=== PATIENT | male | born 2005 | race Caucasian/White ===

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

== ENCOUNTER 2024-01-26 14:28 | Emergency (ER) | payer MEDICAID, SELFPAY ==
[2024-01-26 14:30] VITALS: BP 130/73; PULSE 86; RESP 18; TEMP 36.8; O2SAT 98
--- NOTE | 2024-01-26 16:04 | ED.GENADUL_ITS ---
Discharge Plan Disposition Patient Disposition: Home Condition: Stable Discharge Details Clinical Impression: Colitis Primary Care Provider: SALVADOR VAUGHAN ED Provider: Otoniel Franco Home Meds and New Rx's Prescriptions: New prednisone 20 mg tablet 40 mg PO DAILY 7 Days Qty: 14 0RF amoxicillin-pot clavulanate 875-125 mg tablet 1 tab PO BID 7 Days Qty: 14 0RF Continued sertraline [Zoloft] 50 mg Tablet 100 mg PO DAILY Hold Instructions: Pt Stopped/Never Started Patient Comments: patient ran out of medication over a month ago lisdexamfetamine [Vyvanse] 30 mg Capsule 30 mg PO DAILY Hold Instructions: Pt Stopped/Never Started Patient Comments: patient states he has been out of medication for over a month Discharge Instructions Instructions: Prednisone (By mouth), Amoxicillin/Clavulanate Potassium (By mouth), Crohn Disease (ED), Colitis (ED) Additional Instructions: You were seen in the emergency department for your perineal swelling, due to the possibility of fistula and the lack of redness or severe induration I do not think ED drainage is the most prudent choice at this time, you had a bedside ultrasound that showed no pocket of fluid as well. We would like to treat this as a may be an infected sweat gland with a course of Augmentin which also helps with colitis., Your CT scan showed colitis likely secondary to Crohn's and your inflammatory markers are mildly elevated, I did prescribe you a weeks worth of prednisone. I am placing on the list for follow-up for general surgery visit should your swelling to your perineum become worse. I would like you to make an appoint with your primary care provider to get back on Crohn's maintenance medications. Please return to the emergency department for any severe swelling of the scrotum, fever, worsening redness or drainage of pus from the area. Referrals: [facility] [Provider Group] SALVADOR VAUGHAN, [employer] [Primary Care Provider] - Discharge Data Discharge Date/Time-TO BE ENTERED AT DEPARTURE: 01/26/24 20:32 HPI General Date/Time Provider Initiated Documentation: 01/26/24 15:21 . HPI Narrative: 18 year-old male presents to ED today by POV/ambulating with a chief complaint of swollen gland or similar in the perineum, history of untreated Crohn's disease with onset noted over this past week- does endorse pain with movement. Quality described as painful to touch and movement, no redness, no testicular pain, no radiation to fever, discharge, flank pain, black/bloody stools, purulent drainage, testicular swelling, penile pain. Severity is described as 5/10. Palliating factors include nothing attempted. Provoking factors include nothing specific. Events leading up to the incident/Associated Symptoms: Patient has been off his Crohn's medications for some time now. Patient not anticoagulated. Related Data Home Medications Medication Instructions Recorded Confirmed lisdexamfetamine 30 mg capsule 30 mg PO DAILY 03/13/22 01/26/24 (Vyvanse) sertraline 50 mg tablet (Zoloft) 100 mg PO DAILY 03/13/22 01/26/24 amoxicillin 875 mg-potassium 1 tab PO BID colitis 7 days #14 01/26/24 clavulanate 125 mg tablet tabs prednisone 20 mg tablet 40 mg (2 x 20 mg) PO DAILY crohns 01/26/24 colitis 7 days #14 tabs Previous Rx's Medication Instructions Recorded amoxicillin 875 mg-potassium 1 tab PO BID colitis 7 days #14 01/26/24 clavulanate 125 mg tablet tabs prednisone 20 mg tablet 40 mg (2 x 20 mg) PO DAILY crohns 01/26/24 colitis 7 days #14 tabs Allergies Allergy/AdvReac Type Severity Reaction Status Date / Time No Known Allergies Allergy Unverified 01/26/24 14:34 General Stated Complaint: Male Reproductive Problem JAMILA: 3 Review of Systems All systems reviewed & are unremarkable except as noted in HPI and below Exam Narrative Exam Narrative: GENERAL APPEARANCE: Well-nourished, non-toxic, awake and alert, atraumatic, no acute distress. SKIN: Warm, pink, dry, intact, without rashes/lesions/ulcerations. HEAD: Normocephalic, atraumatic, normal hair distribution for gender/age. EYES: Pupils PERRLA, EOMs intact without nystagmus, normal conjunctiva, no e xudates on lids/lashes. ENT: Nares patent, no circumoral cyanosis, no facial swelling NECK: Supple, trachea midline, painless cervical ROM. LUNGS/CHEST: Non-labored respirations, normal A/P diameter, symmetrical expansion, no chest wall deformity HEART (CV/PV): No peripheral edema, no JVD. ABDOMEN: Soft, non-distended, no guarding, no abdominal tenderness, no peritoneal signs. : small swollen nodule in the L perineum, no testicular tenderness/erythema/swelling, no lesions, cremasteric reflexes intact, no discharge at urethral meatus MSK: Normal ROM, no swelling/deformity to bilateral UEs or LEs, moving all extremities without weakness, no cyanosis, spine midline without tenderness, normal curvature. NEURO: Mental Status AAOx4 - alert to person, place, time, events No facial droop, no forehead involvement. Motor: No focal weakness - strength 5/5 in bilateral UEs and LEs, proximal and distal, symmetric. Sensory: sensation intact to light touch globally. Gait normal: patient ambulated without ataxia into ED room. PSYCH: euthymic, cooperative, pleasant, appropriate speech Course Vital Signs Vital signs: Vital Signs Temperature 36.8 C 01/26/24 14:30 Pulse 86 01/26/24 14:30 Respiratory Rate 18 01/26/24 14:30 Blood Pressure 130/73 01/26/24 14:30 Pulse Oximetry 98 01/26/24 14:30 Temperature 36.8 C 01/26/24 14:30 Temperature Source Skin 01/26/24 14:30 Pulse 86 01/26/24 14:30 Respiratory Rate 18 01/26/24 14:30 Respiratory Effort Normal, Non-Labored 01/26/24 14:33 Blood Pressure 130/73 01/26/24 14:30 Blood Pressure Position Sitting 01/26/24 14:30 Pulse Oximetry 98 01/26/24 14:30 Oxygen Delivery Method Room Air 01/26/24 14:30 Oxygen Flow Rate 0 01/26/24 14:30 Pain Level 5 01/26/24 14:30 Medical Decision Making This dictation utilizes [id number] dictation software and may contain unedited grammatical errors. 18 y/o M presents to ED today with a chief complaint of small swollen painful nodule in the perineum, pain with movement 5/10, no redness/swelling, no purulent drainage, no discharge, no dysuria, no flank pain. Patient has uncontrolled Crohn's disease. Patient denies any lesions, denies penile pain, no fevers. Patients' medical history: Crohn's disease. Family and social history: Noncontributory. Pertinent exam findings / vital signs include : small swollen nodule in the L perineum, no testicular tenderness/erythema/swelling, no lesions, cremasteric reflexes intact, no discharge at urethral meatus, no abdominal tenderness. Differential / pathologies of concern include sebasceous cyst, cellulitis, abscess, fistula. Diagnostic studies of: -basic labs - unremarkable, no leukocytosis, kidney function wnl, UA benign. -CT shows no abscess, no fistula Interventions of: -Augmentin & steroids for colitis and possible cellulitis. ED Course/Assessment/Plan: Patient has a suspicious finding for a possible cellulitis and reactive lymphadenopathy, no concern for abscess- informal bedside U/S performed and was not able to locate any pocket of fluid for I&D, nor would I recommend this due to uncontrolled Crohn's and possibility of fistula. Patient has no evidence of testicular or scrotal infection, no findings of fistula on CT- will refer general surgery for possible excision if no response to antibiotics. Rx'd steroid burst for colitis, recommend he talk to PCP about resuming Crohn's medications. Strict return criteria for fever, increasing swelling/redness, testicular swelling/redness/pain. Findings not consistent with Fistula, Christiana's Gangrene, Testicular Torsion, Drainable abscess. Disposition of Colitis. Patient verbalized understanding of the plan and return to ED criteria and engaged in shared decision making. Medical Records Medical records reviewed: Yes I reviewed the patient's medical records. Imaging Data Radiologic Study: Attestation: I personally reviewed and interpreted this imaging study as follows: Imaging: CT Scan Radiologist's impression: Exam: CT Abdomen And Pelvis With Contrast Exam date and time: 01/26/2024 6:37 PM Age: 18 years old Clinical indication: Abdominal pain; Patient HX: Perineum pain, untx'd crohns, ? fistula TECHNIQUE: Imaging protocol: Computed tomography of the abdomen and pelvis with contrast. Radiation optimization: All CT scans at this facility use at least one of these dose optimization techniques: automated exposure control; mA and/or kV adjustment per patient size (includes targeted exams where dose is matched to clinical indication); or iterative reconstruction. Contrast material: [id number]; Contrast volume: 100 ml; Contrast route: INTRAVENOUS (IV); COMPARISON: No relevant prior studies available. FINDINGS: Liver: Normal. No mass. Gallbladder and bile ducts: Normal. No calcified stones. No ductal dilation. Pancreas: Normal. No ductal dilation. Spleen: Normal. No splenomegaly. Adrenal glands: Normal. No mass. Kidneys and ureters: Normal. No hydronephrosis. Stomach and bowel: There is diffuse wall thickening of the colon compatible with acute colitis. No evidence of bowel obstruction. Appendix: No evidence of appendicitis. Intraperitoneal space: Unremarkable. No free air. No significant fluid collection. Vasculature: Unremarkable. No abdominal aortic aneurysm. Lymph nodes: Moderate diffuse mesenteric lymphadenopathy throughout the abdomen. Urinary bladder: Unremarkable as visualized. Reproductive: Unremarkable as visualized. Bones/joints: Unremarkable. No acute fracture. Soft tissues: Unremarkable. IMPRESSION: Moderate findings of diffuse colitis Dictated and Authenticated by: Sam Toledo MD. Ordering:ROSS Frederick MD Lab Data Lab results reviewed: Yes I reviewed the patient's lab results. Labs: Laboratory Tests Range/Units 01/26/24 01/26/24 17:40 17:46 WBC (4.4-10.8) 10^3/uL 6.83 RBC (4.36-5.78) 10^6/uL 4.67 Hgb (13.5-17.5) g/dL 13.0 L Hct (40.0-50.0) % 38.4 L MCV (80-95) fL 82 MCH (27.0-33.0) pg 27.8 MCHC (32.0-36.0) % 33.9 RDW (11.8-14.1) % 12.3 Plt Count (130-400) 10^3/uL 280 MPV (8.0-11.0) fL 8.7 Immature Gran % % 0.3 Neutrophils % % 58.0 Lymphocytes % % 26.8 Monocytes % % 10.4 Eosinophils % % 4.2 Basophils % % 0.3 Nucleated RBC % (0.0-0.3) % 0.0 Absolute Neutrophils (1.2-6.7) 10^3/uL 3.96 Absolute Lymphocytes (1.2-3.4) 10^3/uL 1.83 Absolute Monocytes (0.1-0.8) 10^3/uL 0.71 Absolute Eosinophils (0.0-0.7) 10^3/uL 0.29 Absolute Basophils (0.0-0.2) 10^3/uL 0.02 ESR (0-15) mm/hr 20 H Sodium (136-145) mmol/L 139 Potassium (3.5-5.1) mmol/L 3.5 Chloride (98-107) mmol/L 103 Carbon Dioxide (21.0-32.0) mmol/L 27.4 Anion Gap (3-11) mmol/L 8.6 BUN (7-18) mg/dL 9 Creatinine (0.70-1.30) mg/dL 0.9 Est GFR (CKD-EPI 2020) (mL/min/1.73m2) 125.39 Glucose (74-106) mg/dL 91 Calcium (8.5-10.1) mg/dL 8.4 L Total Bilirubin (0.2-1.0) mg/dL 0.5 AST (15-37) U/L 18 ALT (16-63) U/L 28 Alkaline Phosphatase (46-116) U/L 58 C-Reactive Protein (<or=0.5) mg/dL 2.38 H Total Protein (6.4-8.2) g/dL 7.6 Albumin (3.4-5.0) g/dL 3.7 Urine Color (Yellow) Yellow Urine Clarity (Clear) Clear Urine pH (5-8) 6.0 Ur Specific [place] (1.005-1.025) 1.010 Urine Protein (Neg-Trace) mg/dL Negative Urine Ketones (Negative) mg/dL Negative Urine Blood (Negative) Negative Urine Nitrite (Negative) Negative Urine Bilirubin (Negative) Negative Urine Urobilinogen (Up to 0.2) mg/dL 0.2 Ur Leukocyte Esterase (Negative) Negative Urine Glucose (Negative) mg/dL Negative Quality:SDOH Health Related Social Needs: No Data to Display PFSH All Active Problems (Updated 01/26/24 @ 20:14 by MIGNON Cisneros) Colitis (Acute) Social History Smoking/Tobacco Use Status: Current every day Tobacco Type: cigarettes, e- cigarettes and smokeless tobacco Smoking risk assessment performed?: Yes Alcohol Intake: current Alcohol Intake frequency: a few times a month Alcohol type: beer and hard liquor Drug use: Occasionally Substance use type: marijuana and hallucinogens Do you feel safe at home: Yes Do you feel safe in your relationship?: Yes
[2024-01-26 17:53] LABS: Abs Immature Grans 0.02 10^3/uL (0.0-0.06); Absolute Basophil Count 0.02 10^3/uL (0.0-0.2); Absolute Eosinophil Count 0.29 10^3/uL (0.0-0.7); Absolute Lymphocyte Count 1.83 10^3/uL (1.2-3.4); Absolute Monocyte Count 0.71 10^3/uL (0.1-0.8); Absolute Neutrophil Count 3.96 10^3/uL (1.2-6.7); Basophils % 0.3 %; Eosinophils % 4.2 %; HCT 38.4 % (40.0-50.0); Immature Grans % 0.3 %; Lymphocytes % 26.8 %; MCH 27.8 pg (27.0-33.0); MCHC 33.9 % (32.0-36.0); MCV 82 fL (80-95); MPV 8.7 fL (8.0-11.0); Monocytes % 10.4 %; Platelet Count 280 10^3/uL (130-400); RBC 4.67 10^6/uL (4.36-5.78); RDW 12.3 % (11.8-14.1); RDW-SD 37.1 fL; WBC 6.83 10^3/uL (4.4-10.8)
[2024-01-26 17:57] LABS: ESR 20 mm/hr (0-15)
[2024-01-26 18:25] LABS: ALT 28 U/L (16-63); AST 18 U/L (15-37); Albumin 3.7 g/dL (3.4-5.0); Alkaline Phosphatase 58 U/L (46-116); Anion Gap 8.6 mmol/L (3-11); BUN 9 mg/dL (7-18); Bilirubin, Total 0.5 mg/dL (0.2-1.0); C-Reactive Protein 2.38 mg/dL (<or=0.5); CO2 27.4 mmol/L (21.0-32.0); CREATININE 0.9 mg/dL (0.70-1.30); Calcium 8.4 mg/dL (8.5-10.1); Chloride 103 mmol/L (98-107); Estimated GFR 125.39 (mL/min/1.73m2); Glucose 91 mg/dL (74-106); Potassium 3.5 mmol/L (3.5-5.1); Sodium 139 mmol/L (136-145); Total Protein 7.6 g/dL (6.4-8.2)
[2024-01-26] MEDS: Omnipaque 350 MG/ML 100 ML BTL IJ (18:33)
--- NOTE | 2024-01-26 18:41 | DI.CT_ITS ---
Exam(s) CT ABDOMEN PELVIS W EXAM: CT ABDOMEN PELVIS W CLINICAL HISTORY: perineum pain- untx'd crohns, ?fistula TECHNIQUE: Imaging Protocol: Axial computed tomography images with coronal and sagittal reformatted images were created and reviewed. CONTRAST MATERIAL: Intravenous: Omnipaque 350 Contrast volume:100 mL Oral: No COMPARISON: No exams were available for comparison FINDINGS: ABDOMEN: Lung Bases: Normal where visualized. Liver: Normal density. No measurable mass. Portal, Superior Mesenteric, and Splenic Veins: Unremarkable. Gallbladder and Biliary Tract: No radiodense calculus or dilation. Pancreas: Normal density, no abnormal calcifications or inflammatory process. Spleen: Normal. Adrenals: No masses seen. Kidneys: Normal size, contour and axis. No radiodense stones or obstructive uropathy. No masses seen. Abdominal Aorta: Abdominal portion non-dilated. Bowel: There is thickening of the wall of the rectum with inflammatory stranding present. There is a lso bowel wall thickening seen in the cecum and ascending colon. Mild bowel wall thickening is seen in the region of the splenic flexure. There is no evidence of bowel obstruction. No evidence of mario endicitis. Peritoneal Cavity: There is a trace amount of fluid in the pelvis. No free air.No abscess is seen. Lymph Nodes: Mildly enlarged lymph nodes are seen in the mesentery which may be reactive. Bones: Within normal limits for the patient's age. Soft Tissues: Unremarkable. PELVIS: Bladder: The urinary bladder is incompletely distended limiting evaluation. No gross abnormalities i dentified. Reproductive Organs: Unremarkable as visualized. Lymph Nodes: Within normal limits. Bones: Within normal limits for the patient's age. IMPRESSION: Findings suggestive of proctocolitis. No abscess is seen. The findings at this time are seen to sug gest a fistula. RADIATION DOSE DELIVERED: 743.56mGy.cm Total DLP DATA REPOSITORY: All CT scans at this facility are submitted to the National Radiology Data Registry (NRDR) Dose Index Registry (DIR) with the [employer] (ACR). RADIATION OPTIMIZATION: All CT scans at this facility use at least one of these dose optimization te chniques: automated exposure control; mA and/or kV adjustment per patient size (includes targeted exa ms where dose is matched to clinical indication); or iterative reconstruction.
--- NOTE | 2024-01-26 19:34 | DI.VRAD_ITS ---
PROCEDURE INFORMATION: Exam: CT Abdomen And Pelvis With Contrast Exam date and time: 01/26/2024 6:37 PM Age: 18 years old Clinical indication: Abdominal pain; Patient HX: Perineum pain, untx'd crohns, ? fistula TECHNIQUE: Imaging protocol: Computed tomography of the abdomen and pelvis with contrast. Radiation optimization: All CT scans at this facility use at least one of these dose optimization techniques: automated exposure control; mA and/or kV adjustment per patient size (includes targeted exams where dose is matched to clinical indication); or iterative reconstruction. Contrast material: [id number]; Contrast volume: 100 ml; Contrast route: INTRAVENOUS (IV); COMPARISON: No relevant prior studies available. FINDINGS: Liver: Normal. No mass. Gallbladder and bile ducts: Normal. No calcified stones. No ductal dilation. Pancreas: Normal. No ductal dilation. Spleen: Normal. No splenomegaly. Adrenal glands: Normal. No mass. Kidneys and ureters: Normal. No hydronephrosis. Stomach and bowel: There is diffuse wall thickening of the colon compatible with acute colitis. No evidence of bowel obstruction. Appendix: No evidence of appendicitis. Intraperitoneal space: Unremarkable. No free air. No significant fluid collection. Vasculature: Unremarkable. No abdominal aortic aneurysm. Lymph nodes: Moderate diffuse mesenteric lymphadenopathy throughout the abdomen. Urinary bladder: Unremarkable as visualized. Reproductive: Unremarkable as visualized. Bones/joints: Unremarkable. No acute fracture. Soft tissues: Unremarkable. IMPRESSION: Moderate findings of diffuse colitis Dictated and Authenticated by: Sam Toledo MD. Ordering:ROSS Frederick MD
[2024-01-26 19:47] LABS: Bilirubin Negative (Negative); Blood Negative (Negative); Clarity Clear (Clear); Glucose Negative (Negative); Ketones Negative (Negative); Leukocyte Esterase Negative (Negative); Nitrite Negative (Negative); Urobilinogen 0.2 mg/dL (Up to 0.2)
--- NOTE | 2024-01-28 15:38 | NUR.NOTE ---
[facility] for a perineal cysts in 1-2 weeks.Nursing Note:
== END 2024-01-26 20:32 | disposition home or self-care (01) ==
PROVIDERS: Emergency Provider Physician Assistant; PCP Nurse Practitioner Family
DX: R10.2 Pelvic and perineal pain (principal); K52.9 Noninfective gastroenteritis and colitis, unspecified; F17.210 Nicotine dependence, cigarettes, uncomplicated; F17.290 Nicotine dependence, other tobacco product, uncomplicated
CPT/HCPCS: 80053; 85652; 99285; 74177; 81003; 85025; 86140; 99284; J3490

== ENCOUNTER 2025-02-20 13:30 | Emergency (ER) | payer SELFPAY ==
[2025-02-20 13:33] VITALS: BP 133/82; PULSE 62; RESP 18; TEMP 37.5; O2SAT 98
== END 2025-02-20 14:19 | disposition left against medical advice (07) ==
LOC: ER 14:13
PROVIDERS: PCP Nurse Practitioner Family
DX: Z53.9 Procedure and treatment not carried out, unspecified reason (principal)

== ENCOUNTER 2025-02-21 13:30 | Emergency (ER) | payer OTHER, MEDICAID, SELFPAY ==
[2025-02-21 13:42] VITALS: BP 122/84; PULSE 113; RESP 20; TEMP 36.7; O2SAT 98
--- NOTE | 2025-02-21 14:00 | DI.RAD_ITS ---
Exam(s) XR CHEST 2V PA LATERAL EXAM: XR CHEST 2V PA LATERAL CLINICAL HISTORY: Upper back pain TECHNIQUE: 2D digital imaging was performed. Two views. COMPARISON: No exams were available for comparison FINDINGS: HEART: Normal size. Aorta: Not dilated. PULMONARY VASCULATURE: Normal. MEDIASTINUM: Unremarkable. LUNGS: Clear. PLEURAL SPACE: No pleural effusion or pneumothorax. BONE:Unremarkable for age. SOFT TISSUES: Unremarkable. IMPRESSION: No acute abnormality. DATA REPOSITORY: RADIATION DOSE DELIVERED:
--- NOTE | 2025-02-21 14:15 | RT.EKG_ITS ---
APPROVED REPORT Exam: Resting ECG Reason for Exam: Chest pain Patient Location: E HR:107 bpm ECG Measurements Heart Rate 107 AXIS IA 121 P 84 QRSd 73 QRS 47 QT 316 T 68 QTc 422 Conclusion Sinus tachycardia...rate> 99 Right atrial enlargement...P>0.25mV 2 lds or<-0.24mV aVR/aVL No Occlusion MS
--- NOTE | 2025-02-21 14:16 | ED.GENADUL_ITS ---
Discharge Plan Discharge Details Chief Complaint: GenMedical Clinical Impression: Acute paranoia, Back pain Primary Care Provider: SALVADOR VAUGHAN ED Provider: Keshawn Louise Home Meds and New Rx's Prescriptions: No Action sertraline [Zoloft] 50 mg Tablet 100 mg PO DAILY Patient Comments: patient ran out of medication over a month ago lisdexamfetamine [Vyvanse] 30 mg Capsule 30 mg PO DAILY Patient Comments: patient states he has been out of medication for over a month HPI General Date/Time Provider Initiated Documentation: 02/21/25 13:44 . HPI Narrative: MDM This is an overall well appearing tachycardic but normothermic 19-year-old male with back pain and chest pain for which ECG was ordered along with troponin testing D-dimer in setting of tachycardia. No pain out of proportion to suggest necrotizing soft tissue infection. Concerning the patient's back pain he lacks red flags for back pain so I do not feel he requires an MRI. Specifically he is not an IV drug user and is normothermic so I do not feel that he has an epidura l abscess. He has not lost control of his bladder nor does have saddle anesthesia so I am not suspicious for cauda equina syndrome. He has lost control of his bowels though he does have a history of Crohn's disease and recent diarrhea so this certainly could be the cause of his loss of bowel control. He has not had any recent surgeries to his back to suggest increased risk for spinal epidural hematoma. Furthermore he is not anticoagulated. No dysuria or frequency to suggest UTI. Patient lacks risk factors for ACS and if his troponin is reassuring anticipate outpatient follow-up. He has a soft abdomen that is not tender so I do not feel he requires a CT scan this point in time as he has not had fevers to suggest Crohn's flare. 4:02 PM Patient had a positive D-dimer through for which he will undergo CT angiogram of his chest. His CBC lacks anemia thrombocytopenia and leukocytosis. His tachycardia improved. He had received 1 L of IV fluids. 4:48 PM I signed patient out to Dr. Parag mathis. When we met with the patient he was concerned that the hospital did not know his blood type and that if he were to come into the emergency department following a trauma that he would hypothetically require another blood draw. This was quite disturbing to him. It does seem that there is a component of paranoia as he had reportedly also mentioned to his nurse that he was concerned for fiberoptics in his eye related to a job that he recently left. He was amenable to speaking with a psychiatrist. Dr. Tuttle will place consult. HPI This is a patient with a history of Crohn's disease presenting with back pain and concerns about a potential Crohn's flare-up. The patient arrived on foot seeking to expedite the process of obtaining infliximab treatment for Crohn's disease, which has been managed since childhood. The last treatment was a few years ago, administered every 4 weeks. The patient reports a decline in health following job loss, with back pain being the most debilitating symptom. The patient suspects a flare-up of Crohn's disease, as evidenced by persistent vomiting for 3 days after consuming alcohol. The patient's parents have expressed concern over deteriorating health and urged seeking treatment. The patient recalls a previous incident where a missed GI appointment led to an ER visit and subsequent hospitalization for feeding tube placement and increased infliximab dosage. Currently, the patient is unable to schedule a GI appointment due to lack of transportation. The patient reports constant stomach pain and difficulty eating, although water can be tolerated. The patient also reports bowel incontinence and decreased bladder function, but no numbness or tingling in the legs. No IV drug use. The back pain, described as more severe than any previous Crohn's flare-up, began during employment at a [employer] where respirators were worn. The pain has progressively worsened over the past few months. There is no history of back surgeries or use of blood thinners. The pain is localized to the left upper back and is exacerbated by breathing, leading to some restriction. No pain management strategies have been attempted. Exam General: Well-appearing in no acute distress speaking in complete sentences. Head: Normocephalic, atraumatic. Eye: Extraocular eye movements intact. No conjunctival injection. No scleral icterus. Ear, nose, mouth, throat: Grossly normal inspection. Normal voice, handling secretions normally. Neck: Trachea midline. No midline cervical spinal tenderness. Back: No step-offs no deformities. No midline thoracic nor lumbar spinal tenderness. Mild left-sided paraspinal muscle tenderness. No rash to back. Cardiovascular: Well-perfused distal extremities. Rapid regular rate. Respiratory: Nonlabored respiration. Clear lungs bilaterally Gastrointestinal: Nondistended abdomen. Soft. Nontender. No rebound. No guarding. Musculoskeletal: No edema. Moving all 4 extremities spontaneously. Skin: Normal for age and race, grossly normal temperature and turgor. No acute rash. Neurologic: Alert and appropriate, no apparent acute deficits. Psychiatric: Mood and manner are appropriate. Grooming and personal hygiene are appropriate. Patient denied suicidal and homicidal ideation. He denied visual and auditory hallucinations. No pressured speech. No flight of ideas. Related Data Home Medications ?Medication ?Instructions ?Recorded ?Confirmed lisdexamfetamine 30 mg capsule 30 mg PO DAILY 03/13/22 02/21/25 (Vyvanse) Held on 02/21/25. Instructions: Pt Stopped/Never Started sertraline 50 mg tablet (Zoloft) 100 mg PO DAILY 03/1302/21/25 Held on 02/21/25. Instructions: Pt Stopped/Never Started Allergies Allergy/AdvReac Type Severity Reaction Status Date / Time No Known Allergies Allergy Verified 02/21/25 13:41 General Stated Complaint: GenMedical JAMILA: 4 Course Vital Signs Vital signs: Vital Signs Temperature 36.7 C 02/21/25 13:42 Pulse 113 H 02/21/25 13:42 Respiratory Rate 20 02/21/25 13:42 Blood Pressure 122/84 02/21/25 13:42 Pulse Oximetry 98 02/21/25 13:42 Temperature 36.7 C 02/21/25 13:42 Temperature Source Oral 02/21/25 13:42 Pulse 113 H 02/21/25 13:42 Respiratory Rate 20 02/21/25 13:42 Blood Pressure 122/84 02/21/25 13:42 Blood Pressure Position Sitting 02/21/25 13:42 Pulse Oximetry 98 02/21/25 13:42 Oxygen Delivery Method Room Air 02/21/25 13:42 Oxygen Flow Rate 0 02/21/25 13:42 Pain Level 4 02/21/25 13:42 PFSH All Active Problems (Updated 02/21/25 @ 16:53 by Keshawn Louise MD) Back pain (Acute) Acute paranoia (Acute) Social History Smoking/Tobacco Use Status: Current every day Tobacco Type: cigarettes, e- cigarettes and smokeless tobacco Smoking risk assessment performed?: Yes Alcohol Intake: current Alcohol Intake frequency: a few times a month Alcohol type: beer and hard liquor Drug use: Occasionally Substance use type: marijuana and hallucinogens Do you feel safe at home: Yes Do you feel safe in your relationship?: Yes
[2025-02-21 14:38] VITALS: BP 122/84; PULSE 98; RESP 16; RESP 20; TEMP 36.7; O2SAT 98
[2025-02-21 14:44] LABS: Abs Immature Grans 0.02 10^3/uL (0.0-0.06); Absolute Basophil Count 0.04 10^3/uL (0.0-0.2); Absolute Eosinophil Count 0.24 10^3/uL (0.0-0.7); Absolute Lymphocyte Count 2.37 10^3/uL (1.2-3.4); Absolute Neutrophil Count 5.69 10^3/uL (1.2-6.7); Basophils % 0.4 %; Eosinophils % 2.4 %; HCT 46.2 % (40.0-50.0); HGB 15.2 g/dL (13.5-17.5); Immature Grans % 0.2 %; Lymphocytes % 23.8 %; MCH 27.1 pg (27.0-33.0); MCHC 32.9 % (32.0-36.0); MCV 82 fL (80-95); MPV 8.8 fL (8.0-11.0); Monocytes % 16.1 %; Neutrophils % 57.1 %; Platelet Count 469 10^3/uL (130-400); RBC 5.61 10^6/uL (4.36-5.78); RDW 12.5 % (11.8-14.1); RDW-SD 37.5 fL; WBC 9.96 10^3/uL (4.4-10.8)
[2025-02-21] MEDS: Ketorolac 15 MG/ML VIAL IVP (14:59)
[2025-02-21] MEDS: Normal Saline 1,000 ML 1000 ML IV (15:00)
[2025-02-21 15:02] LABS: Anion Gap 11.5 mmol/L (3-11); BUN 21 mg/dL (7-18); CO2 27.5 mmol/L (21.0-32.0); CREATININE 1.1 mg/dL (0.70-1.30); Calcium 9.3 mg/dL (8.5-10.1); Chloride 97 mmol/L (98-107); Estimated GFR 97.95 (mL/min/1.73m2); Glucose 100 mg/dL (74-106); Potassium 3.8 mmol/L (3.5-5.1); Sodium 136 mmol/L (136-145)
[2025-02-21 15:03] LABS: Troponin I < 4 ng/L (<or=76)
[2025-02-21 15:04] LABS: Diff Comment Agrees w/ Instrument; RBC Morphology Normal
[2025-02-21 15:15] LABS: D-Dimer 2099 ng/mlFEU (<500)
--- NOTE | 2025-02-21 15:30 | DI.CT_ITS ---
Exam(s) CT CHEST PE CTA EXAM: CT CHEST PE CTA CLINICAL HISTORY: + D-dimer. TECHNIQUE: Imaging Protocol: Axial CT angiography was performed with multi- slice acquisition and multi-planar and/or 3D reconstructions. Lung Computer Aided Detection (CAD) was utilized. CONTRAST MATERIAL: Intravenous: Omnipaque 350 contrast volume:65 mL COMPARISON: CT CT ABDOMEN PELVIS W from 01/26/2024 CR XR CHEST 2V PA LATERAL from 02/21/2025 FINDINGS: Tracheobronchial tree: Patent where visualized. No bronchiectasis. Pulmonary parenchyma: No consolidation or dominant measurable mass. No architectural distortion. Pulmonary Arteries: No evidence of filling defect to suggest pulmonary emboli. Mediastinum and Summer: No dominant adenopathy or fluid collection. The esophagus is unremarkable. There is soft tissue in the anterior mediastinum most consistent with residual thymus. Visualized thyroid gland: Unremarkable. Pleura: No effusion or pneumothorax. Heart: The heart is not dilated. No coronary artery calcifications are seen. No pericardial effusion. Aorta: Thoracic aorta non-dilated. No evidence of dissection. Upper abdomen: Unremarkable. Soft tissues: Unremarkable. Bones: Within normal limits for the patient's age. IMPRESSION: 1. No evidence of pulmonary embolism, thoracic aortic dissection or aneurysm. 2. No acute pulmonary process. RADIATION DOSE DELIVERED: 85.81mGy.cm Total DLP DATA REPOSITORY: All CT scans at this facility are submitted to the National Radiology Data Registry (NRDR) Dose Index Registry (DIR) with the [employer] (ACR). RADIATION OPTIMIZATION: All CT scans at this facility use at least one of these dose optimization techniques: automated exposure control; mA and/or kV adjustment per patient size (includes targeted exams where dose is matched to clinical indication); or iterative reconstruction.
[2025-02-21 16:06] LABS: Troponin I < 4 ng/L (<or=76)
[2025-02-21] MEDS: Omnipaque 350 MG/ML 100 ML BTL IJ (16:28)
[2025-02-21] MEDS: Normal Saline - Diluent 50 ML VIAL IJ (16:28)
--- NOTE | 2025-02-21 20:36 | PSYCO_ITS ---
Date of service: 02/21/25 Time of Service: 20:37 Summary Note PSYCHIATRY CONSULT NOTE: INITIAL EVALUATION Date/Time:?02/21/2025 8:36:24 PM Name:Ondina Rodriguez :?2005 Location of the patient:?[facility] ED Consulting Array Clinician:?Jaswinder Black Location of the clinician:?[facility] Length of Consult:?30 mins SUMMARY 19-year-old male, with history of bipolar disorder, schizophrenia, current cannabis use, history of psychiatric hospitalization, with no history of self-crook rming/suicidal behavior/violent behavior, self-referred for psychosis, belen. Based on evaluation patient is manic, as he is paranoid, delusional, he is not sleeping or eating, patient is not compliant with medications. Patient at this time will benefit from inpatient psych.Patient presently meets criteria for inpatient psychiatric hospitalization. Working Diagnoses:? F31.2 Bipolar disorder, current episode manic severe with psychotic features Rule Out Diagnoses:? CPT Codes:?71125 - Psychiatric Diagnostic Evaluation with Medical Services PLAN Disposition:?Psychiatric admission when medically stable, If patient refuses he needs to be placed on involuntary status for admission. ? Observation level ? Psychiatric 1:1 needed??Continue psych 1:1 Work-up:? Pharmacological:? * risperidone 1 mg PO 2x daily for psychosis * haloperidol 5 mg PO/IM Q6h + lorazepam 2 mg PO/IM Q6h + diphenhydramine 50 mg PO/IM Q6h PRN agitation * Is patient psychotic? - Yes; Were antipsychotic medications started? - Yes * Informed consent: Discussed risks and benefits of the above recommended psychiatric medications with patient, who demonstrated understanding and gave express informed consent to take the above medications as documented. Follow up needed while in the hospital??Q24h Other:? * Parts of this note were dictated using voice recognition software and may contain small irregularities and grammatical errors which are unintentional. * If questions arise about the psychiatric care of this patient, please call the [facility]?to request a follow-up consult. ?Please do not contact me individually through the EMR chat as I am not?regularly logged on to?this system. The psychiatrist for the follow-up visit may be a different psychiatrist Discussed plan with onsite steam and power supervisor:?Yes - Spoke with Dr. Tuttle, plan for inpatient psych HISTORY This evaluation was conducted remotely with the assistance of onsite staff via HIPAA-compliant video call. Patient consented to proceed with the telehealth visit. Requested by:? Sources of information:?Patient, medical record, Father History of Present Illness:?19-year-old male, living alone, single, unemployed, with history of bipolar disorder, schizophrenia, current cannabis use, history of psychiatric hospitalization, with no history of self-harming/suicidal behavior/violent behavior, self-referred for psychosis, belen. UDS not ordered, Alcohol not ordered. In the hospital, patient has been in behavioral control with no reported issues. Patient was seen and evaluated. Patient was noted to have pressured speech, circumstantial, patient in the ED stated some bizarre statement where he wanted his blood type checked. Patient is also paranoid about the job that he got let go as form a [employer]. Patient parents state that patient is paranoid, he is paranoid about FBI/KAYLENE and governement after him and spying on him. He makes bizarre claims to his parents. He wanted to join the but due to Chrons disease he does not qualify and he believes that this is a conspiracy. Patient is not compliant with meds, he denies a/v hallucinati ons, he denies si/hi intent or plan, he does not sleep and has not been eating well.. Collateral ContactedContacted David Rodriguez--Father ([phone]). Collateral reports patient poses immediate safety concerns and needs inpatient hospitalization. Collateral reports patient has no access to firearms. See hpi. PSYCHIATRIC REVIEW OF SYSTEMS (symptoms in past two weeks) Pertinent Positives:?irritability/paranoia/see hpi Pertinent Negatives:? PSYCHIATRIC HISTORY Past Psychiatric Diagnoses/Problems:?bipolar disorder, schizophrenia Psychiatric Treatment:?Hospitalizations:?psychiatric hospitalization, X2 per patient ???Other Past treatment:?medication management ???Current treatment:?medication management Drug/Alcohol History ???Current excessive drug/alcohol use:?cannabis ???Past excessive drug/alcohol use:?none ???Drug/alcohol use comment:?Treatment:?none ???Withdrawal symptoms:?none ???UDS results:?UDS not ordered ???BAL results:?not ordered ???Active withdrawal Protocol:? Stressors:?financial problems, job stress Trauma:?none Family Psychiatric History:?none HEALTH HISTORY Medical Problems:? inflamatory bowel disease/Crohn's disease Is patient linked with PCP??yes Psychiatric and other clinically relevant medications:? Allergies/Adverse Medication Reactions:?NKDA Physical Findings:?no clinically significant changes in vital signs DEMOGRAPHICS/SOCIAL HISTORY Gender:?male Living Situation:?living alone Relationship Status:?single Education:?high school/GED Employment:?unemployed Social Support Network:?supportive social network of family or friends Legal History:?none Special Considerations:?none RISK EVALUATION Suicidality/self-injury:?no history of suicidal/self-harming behavior Primary Suicide Screening (PSS-3) 1. In the past two weeks, have you felt down, depressed, or hopeless??NO 2. In the past two weeks, have you had thoughts of killing yourself??NO 3. In your lifetime, have you ever attempted to kill yourself??NO 3a. Within the past 6 months??NO ESS-6 Secondary Screen ( If #2 is yes or #3a is yes within the past 6 months, then complete secondary screen) 1. Positive on PSS-3 questions 2 & 3 ? active suicidal ideation with a past attempt??Screen not applicable 2. Have you been thinking about how you might kill yourself??Screen not applicable 3. Have you had some intention of acting on your thoughts??Screen not applicable 4. Lifetime psychiatric hospitalization??Screen not applicable 5. Has drinking or substance abuse ever been a problem for you??Screen not applicable 6. Current irritability, agitation, or aggression??Screen not applicable PSS-3/ESS-6 Secondary Screen Scoring:?Low Risk-PSS3 screen negative PSS-3/ESS-6 Scoring Interpretation Legend PSS-3 screen incomplete [Blank PSS-3 questions #2 OR #3a] PSS-3 screen unable to assess [Unable to Assess responses on PSS-3 questions #2 AND #3a] Mild [No current attempt AND No suicide plan or intent AND Score (0-2)] Moderate [No current attempt AND Active suicidal ideation with plan or intent (not both) OR Score (3-4)] Severe [Current attempt OR Suicide plan and intent OR Score (5-6)] HI/Violence/Property Destruction:?no history of violent/aggressive behavior Access to Firearms:?none. Collateral reports patient has no access to firearms. Grave disability/Poor self-care:?no Psychosis:?Yes Protective Factors:? High Utilization Criteria:? Signs of Secondary Gain:? MENTAL STATUS EXAM Appearance and Attire:? Normal Psychomotor agitation:? No abnormality Attitude and behavior:? Cooperative Speech:? Pressured Mood:? Irritable Affect:? Irritable Thought Process:? Circumstantial Thought content:? Paranoia Perception:? No hallucinations Intelligence:? Average Abstraction:? Appropriate Language:? No abnormality Orientation:? Oriented x 4 Sensorium:? Normal Knowledge:? Appropriate for education and socioeconomic status Memory:? Intact Insight:? Lack of awareness of problems Judgment:? Impaired in response and decision making, Impaired in responses to current situation and behavior SUMMARY RISK ASSESSMENT Current Suicide Risk Elevated??PSS-3/ESS-6 Scoring: Low Risk-PSS3 screen negative? Current Violence Risk Elevated??No Issues with ability to care for self.?No SAFE-T Jaswinder Black MD Psychiatrist, [facility]
[2025-02-21] MEDS: OLANZapine ODT 5 MG TAB (23:47)
--- NOTE | 2025-02-22 | ED.PROG_ITS ---
Date of service: 02/22/25 Time of Service: 00:02 Medical Decision Making Patient was received in signout from my colleague. Please refer to Dr. Louise's note. In summary, patient has a history of partially diagnosed schizophrenia versus bipolar. He has had a psychiatric admission in the past which he left on his own. He presented today with vague complaints about needing his Remicade for his Crohn's, but during the assessment by Dr. Louise the patient demonstrated perseverations, pressured speech, flight of ideas, and symptoms of notable paranoia, all of which were concerning for manic episode and potential schizophrenia with a psychotic episode. Patient had thorough medical workup performed, labs were stable, hemoglobin stable, CT scan shows no acute process, electrolytes normal, abdomen was nontender nondistended, no signs of an acute Crohn's flare. Decision was made to get telepsych consult, telepsych consult was ordered by myself, and the patient was seen and evaluated by Dr. Lee Ann Madden. Dr. Black also believes that the patient is suffering from a psychotic episode, with belen and paranoia. He recommends admission for mental health management. He feels that the patient wants to be here voluntarily at this time, but psychiatry recommends transition to involuntary admission status if patient refused to stay. He recommends starting on risperidone 1 mg p.o. twice daily, Haldol lorazepam and Benadryl for agitation, and inpatient psychiatric management. We did contact [facility], they did come and evaluate the patient. They state that at this time they do not have a reason to hold the patient, because he is denying any homicidal or suicidal ideations, however they were also not able to complete the assessment because of the patient's pressured speech and agitation. They will come for an evaluation tomorrow. At this time I and the psychiatrist both feel that the patient is not safe for himself or to go home. He did have a gun at his parents home earlier, and I do fear for the safety and wellbeing of his younger siblings and his parents at this current state. I did discuss this with the patient, and the patient agreed to stay voluntarily. Additionally he agreed to take oral Zyprexa 10 mg when he became notably agitated at the situation. No involuntary medications were required. However if the patient did refuse medication or become extremely aggressive he would likely have needed involuntary medication administration. The patient will remain here on voluntary psychiatric hold with plan for admission. The patient does try to leave he will need to be cleared by psychiatry and the physician prior to this, and recommendations at this current stage of his [facility] I discussed this with the mental health team, the parents and the patient and all parties understand. Family agrees. Critical Care Time Critical Care Time Critical Care Time: Yes Total Critical Care Time: 35 Attestation: Upon my evaluation, this patient had a high probability of imminent or life- threatening deterioration, which required my direct attention, intervention, and personal management. I have personally provided 35 minutes of critical care time exclusive of time spent on separately billable procedures. Time includes review of laboratory data, radiology results, discussion with consultants, and monitoring for potential decompensation. Interventions were performed as documented. Discharge Plan Discharge Details Chief Complaint: GenMedical Clinical Impression: Acute paranoia, Back pain, Belen Primary Care Provider: SALVADOR VAUGHAN ED Provider: Otoniel Tuttle Neal Meds and New Rx's Prescriptions: No Action sertraline [Zoloft] 50 mg Tablet 100 mg PO DAILY Patient Comments: patient ran out of medication over a month ago lisdexamfetamine [Vyvanse] 30 mg Capsule 30 mg PO DAILY Patient Comments: patient states he has been out of medication for over a month
--- NOTE | 2025-02-22 07:05 | ED.PROG1_ITS ---
Date of service: 02/22/25 Time of Service: 07:05 Psychiatric Border Handoff Update Brief Story: 19-year-old male history of schizophrenia in the emergency department voluntarily Status: voluntary Able to leave: would need physician/RODGER and crisis evaluation prior to leaving Behavioral Concerns: None Potential Disposition: Pending placement Barriers to Disposition: Awaiting recommendations Medical Concerns: None Mediation Reconciliation performed: Yes Code Status ordered: Yes Diet ordered: Yes Future to do Items: Follow-up [facility]. 12:35 PM [facility] did not feel that the patient met involuntary criteria. I met with the patient. He continued to be paranoid. He asked me if I could read minds. He was calm. He had no flight of ideas but would not engage in conversation. We will reengage with telepsychiatry. 3:45 PM I met with the patient again. He was calm cooperative answering questions appropriately. I spoke with psychiatrist Dr. Jose Daniel Roach who had assessed the patient. He did not feel that the patient had any grounds for an involuntary hold. Patient was not nauseous nor vomiting. He requested some chicken noodle soup. 4:22 PM Patient tolerated chicken noodle soup. He was not having abdominal pain therefore my suspicion for Crohn's flare was low. Patient did not give me permission to speak with his parents. I have updated Ayesha from [facility] who will come to make a safety plan for the patient. Telepsych recommendations (re: meds for agitation, etc): Risperidone recommended and ordered twice daily Discharge Plan Disposition Patient Disposition: Home Discharge Details Clinical Impression: Acute paranoia, Back pain, Windy Primary Care Provider: SALVADOR VAUGHAN ED Provider: Keshawn Louise Home Meds and New Rx's Prescriptions: New risperidone 1 mg tablet 1 mg PO BID Qty: 90 0RF Continued sertraline [Zoloft] 50 mg Tablet 100 mg PO DAILY Patient Comments: patient ran out of medication over a month ago lisdexamfetamine [Vyvanse] 30 mg Capsule 30 mg PO DAILY Patient Comments: patient states he has been out of medication for over a month Discharge Instructions Additional Instructions: You were seen in the emergency department for your paranoid thoughts. The psychiatrist recommended that you begin taking this medication that has been sent to your pharmacy. If you do not feel safe at home or if you are concerned about anything else please return to the emergency department. Please also return if you develop any abdominal pain.
--- NOTE | 2025-02-22 12:38 | PDOC.MHCN_ITS ---
Date of service: 02/22/25 Time of Service: 12:39 PHQ-9 Over the last 2 weeks, how often have you been bothered by any of the following problems? 1. Little interest or pleasure in doing things: nearly every day 2. Feeling down, depressed, or hopeless: several days 3. Trouble falling or staying asleep, or sleeping too much: nearly every day 4. Feeling tired or having little energy: nearly every day 5. Poor appetite or overeating: nearly every day 6. Feeling bad about yourself - or that you are a failure or have let yourself and your family down: not at all 7. Trouble concentrating on things, such as reading the newspaper or watching television: not at all 8. Moving or speaking so slowly that other people could have noticed? - Or the opposite - being so fidgety or restless that you have been moving around a lot more than usual: not at all 9. Thoughts that you would be better off or of hurting yourself in some way: not at all Total score: 13 If you checked off any problems, how difficult have these problems made it for you to do your work, take care of things at home, or get along with other people?: very difficult Source: Developed by Drs. Den Serrato, Johanne Smith, Rupesh Escamilla and colleagues, with an educational kayla from [employer]. Suicide Severity Rate CSSRS Have you wished you were or wished you could go to sleep and not wake up?: No Have you actually had any thoughts of killing yourself?: No CSSRS3 Have you ever done anything, started to do anything or prepared to do anything to end your life?: No Screening Score Total Score: 0 Screening: Negative Mental Health Emergency Note Release [facility] release signed:: Yes Reason for Visit The client is previously known to [facility] and was closed out in March of 2023. He reported he has been hospitalized in the past at [facility] however he is not sure when that was. Per his report and his mother confirmed he had a therapy appointment today. [facility] requested an evaluation of the client on 02.21.25 however, he was too dysregulated at the time of request so is being assessed initially today at [facility]. In the last 2 weeks has the pt presented for ES prior to today?: Unknown Client Information Client is: New Well Housed: Yes Non Suicidal Self Injury Current: No History: No Safety Risk/Harm to Self or Others Current Ideation to Harm Self or Others: No Risk: Does risk to harm exist?: No Risk: Low Risk Duty to warn indicated: No Asssessment/Mental Status Appearance: Disheveled Attitude: Cooperative Behavior: Unremarkable Speech: Normal Affect: Cogruent with mood Mood: Depressed, Anxious, Irritable and Angry Thought process: Goal directed Hallucinations: No evidence Delusions: No evidence Attention: Unremarkable Perception: Not impaired Orientation: Fully orientated Memory: Intact Insight: Fair Judgement: Fair Neurovegetative Symptoms Sleep: Decrease (Although nursing reports he slept well last night. ) Appetitie: Decrease (Due to Crohn's Disease. ) Interests: Decrease Energy: Decrease Libido: Not applicable Substance Use: Do you use nicotine?: No Additional Issues: Assaultive/Threatening Behavior: No Medical Concerns: No Client engaged in active self harm w/weapon: No Threatening to run away: No Child reported abuse/neglect: No Voluntarily presenting for services: No Domestic violence is a concern: No Extreme Psychosis or extreme behavior is present: No Impression The client is a 19-year-old, single, male who lives independently in [facility]. He was recently let go from his job after not showing up0 for work. He is planning to apply for unemployment while he looks for another job. The client uses He/Him pronouns and it is reported he has a history diagnosis (not from [facility]) of Bipolar and ADHD. His parents signed him up for therapy which was to begin today. The client is very sleepy when we arrive but does sit up on his knees in bed wrapped wit his blanket to engage. He makes good eye contact, is cooperative and engaged. He shows some humor occasionally which is appropriate and other times he showed frustration and anger that he is being held. He reported good sleep and his appetite has been disrupted due to being without his Infliximab, and stated he felt delirious without it and not being able to eat either as a result. The client is fully oriented and has fair insight and judgment. Per discussion with the [facility] team the ED provider, Dr. Nicolas had been guided by a tele-psych to hold the client based in the report from the psychiatrist that he is showing signs of paranoia and delusions which suggest a bipolar diagnosis and would benefit from an inpatient stay. Additionally it is reported that he has not been taking his medications and this has also lead to this decline. Th is clinician also spoke to the client's mother, Richmond with his permission and she endorsed paranoia and delusions and denied any SI or HI. Plan/Disposition Recommended Disposition: Therapy. Plan: Although an in patient stay for psychiatric would be beneficial this clinician does not believe she has enough to do an involuntary hold. Client was safety planned home. Reports/communication Outcome discussed with: ED/Personnel
[2025-02-22] MEDS: Nicotine 2 MG GUM CH (14:27)
--- NOTE | 2025-02-22 15:47 | PSYCO_ITS ---
Date of service: 02/22/25 Time of Service: 15:47 Summary Note PSYCHIATRY CONSULT NOTE: FOLLOW-UP EVALUATION Date/Time:?02/22/2025 3:45:54 PM Name:Ondina Rodriguez :?2005 Location of the patient:?[facility] ED Consulting Array Clinician:?Srinivas Roach Location of the clinician:?[place] Patient seen in follow-up. He has been recommended for psychiatric admission because when he first presented and he appeared manic and psychotic. He had disorganized thought processes, pressured speech, was paranoid and delusional about being followed by the government. Patient did apparently get 1 dose of risperidone last night and when seen today he looks a lot better. He is pleasant, cooperative, and does not appear pressured or manic.. He is not overtly delusional. He denies AVH. I spoke with his mother who says that he saw a psychiatrist about a year ago who felt that he was schizophrenic. Patient never agreed to go back again and has not been in care. They have gotten him to agree to go to a therapist to help him deal with the stress of his job. She says he smokes a lot of marijuana, and when he smokes he gets acutely paranoid and delusional, and starts talking about the same things he presented with originally. At this point, patient appears to his stabilized enough where he is not holdable for involuntary hospitalization, and he is not agreeable to voluntary. Unclear how much of his original presentation is secondary to drug induced psychosis, versus an underlying psychiatric issue or a combination. Re commendation is for discharge to outpatient services with a prescription for risperidone as ordered. RISK ASSESSMENT Current Suicide Risk Elevated???negligible Current Violence Risk Elevated???No Issues with ability to care for self???No Does patient require psychiatric hospitalization???No Working Diagnoses:? 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 CPT Codes:?85984 (OP/ED) / 98737 (IP) ? High Complexity Follow-up PLAN Disposition:? Discharge type: Discharge to community resource ? Safety planning: Patient understands and agrees with discharge plan, is aware that should symptoms worsen to return to the ED or call 911 ? Resource information to be provided by site: outpatient mental health treatment, information about patient's diagnosis, treatment recommendations, including dosage and side effects of any prescribed medications ? Observation level ? Psychiatric 1:1 needed??No psych 1:1 needed Work-up:? Pharmacological:? Recommend discharge with risperidone 1mg BID ? Is patient psychotic? - No; ? Informed consent: Discussed risks and benefits of the above recommended psychiatric medications with patient, who demonstrated understanding and gave express informed consent to take the above medications as documented. Follow up needed while in the hospital??none Other:? Parts of this note were dictated using voice recognition software and may contain small irregularities and grammatical errors which are unintentional. ? If questions arise about the psychiatric care of this patient, please call the [facility]?to request a follow-up consult. ?Please do not contact me individually through the EMR chat as I am not?regularly logged on to?this system. The psychiatrist for the follow-up visit may be a different psychiatrist Discussed plan with onsite steam table worker:?Yes - Dr Rubio HISTORY This evaluation was conducted remotely with the assistance of onsite staff via HIPAA-compliant video call. Patient consented to proceed with the telehealth visit. Requested by:?Keshawn Louise MD Medical Record Reviewed/Appreciated:?medical record reviewed Patient status since last psychiatric visit?:?in behavioral control with no reported issues Interval History:? Patient is a 19-year-old male who presented to the emergency department 02/21/2025 with a history of schizophrenia. He had presented paranoid and was seen by psychiatry. At that time, he was noted to have pressured speech, circumstantial, and had made some bizarre statements that he wanted his blood type checked for unknown reasons. He was paranoid about his job as well as about the FBI/KAYLENE and the government being after him and spying on him. He makes bizarre claims to his parents. He was denied going to the because he has Crohn's disease and does not qualify, but he believes that this was a conspiracy against him. Parents were contacted and feel that he is in need of admission. He was recommended for psychiatric admission and the psychiatrist felt he met involuntary criteria if he refused, due to his psychosis. I reviewed the emergency room provider's note from today and apparently [facility] has met with him and did not feel that the patient met involuntary criteria, because he was not suicidal or homicidal, but they also could not complete the assessment because of his pressured speech and agitation.. He continued with the provider to be paranoid, asking him if I could read minds and would not engage in conversation. Spoke with Ben Harley RN. Has been doing much better today. Less agitated and more organized. Less paranoid. Slept all night and woke up a bit agitated and unhappy about being held for psych, he calmed down and has been comp[etely appropriate since then. He did take one dose of risperidone last night but refused it this morning. Met with patient. He said he was only here for his Crohns. Now he feel physically better and feels he doesnt need any further treatment He says he is here for his Crohns he says he was in a high stress job and consuming way more sugar than I should have. he says today he was able to eat and feels significantly better. He says he has had a dx of depression but he hasnt been in any recent treatment. He says he is lined up to see a therapist and the intake was actually yesterday. he says he was getting back into therapy to help him with being stressed and overwhelmed. 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 [id number] AV. Denies SI/HI He does say he has been losing weight and have been delirious meaning malnourished, feels lightheaded, also overindulges in caffeine/energy drink. Collateral Contacted Attempted to contact Richmond Rodriguez--mother ([phone]). She doesn't feel he is a risk to self or others. She does say she thinks he is schizophrenic. She says before he lost his job he was buying alot of weed and you can see a big difference in him. He loses touch with reality. He gets very paranoid, thinks there are drones overhead and the [facility] is watching him. She confirms he has Crohns and she was shocked he wanted to come to the ED. He has been in a major flare. She says he hasnt actually been dx with anything yet. He saw a psychiatrist a year ago and the MD thought he had schizophrenia and when he heard that he never went back. She confirms he was supposed to have a therapist intake today and they have to reschedule. She doesnt know when the last time he used. She thinks very recently.. Current psychiatric and other clinically relevant medications:?risperidone 1mg BID MENTAL STATUS EXAM Appearance and Attire:? Normal, Good eye contact, Well groomed Psychomotor agitation:? No abnormality Attitude and behavior:? Cooperative Speech:? No abnormality Mood:? Euthymic Affect:? Full range of affect Thought Process:? Linear, Logical, Coherent Thought content:? No abnormality, No suicidal ideation, No homicidal ideation, N o paranoia, No delusions Perception:? No hallucinations Intelligence:? Average Abstraction:? Appropriate Language:? No abnormality Orientation:? Oriented x 4 Sensorium:? Normal Knowledge:? Appropriate for education and socioeconomic status Memory:? Intact Insight:? Mild impairment Judgment:? Mild impairment Srinivas Roach, , [facility]
--- NOTE | 2025-03-01 15:05 | MHPN_ITS ---
Date of service: 02/21/25 Time of Service: 21:25 Mental Health Emergency Note Release [facility] release signed:: Yes Reason for Visit In the last 2 weeks has the pt presented for ES prior to today?: No Asssessment/Mental Status Appearance: Disheveled Attitude: Guarded and Hostile Behavior: Agitated Speech: Loud Affect: Expansive Mood: Euthymic Thought process: Unremarkable Hallucinations: No Delusions: yes, Persectory/Paranoid Attention: Unremarkable Perception: Not impaired Orientation: Fully orientated Memory: Intact Insight: Poor Judgement: Poor Impression This clinician received a call from [facility] and spoke with Doctor Tuttle about the client. Doctor Tuttle stated that the client was experiencing paranoia and wanted help and wanted to go to in patient treatment. Upon arriving at [facility] TAWANA Mcneil and this clinician were informed that the client had expressed delusions regarding the government being after him and that something was trying to be leached from his body and that the client was worried this would impact his ability to join the if [place] invades the [place], based on a [facility] psychological consult the hospital stated that they would EE the client if he tried to leave. This clinician and [facility] Mariam Mcneil attempted to engage the client in a crisis assessment, the client stated he was fine and that he was not thinking of harming himself or others and that the hospital had thrown him into the zone b room for no reason. The client stated that he wanted to leave. The client denied any of the delusions that this clinician and Mariam Mcneil had been informed of by Doctor Tuttle. The client began to escalate pacing and stating that he is fine and that in patient treatment does not help him. At this point this clinician and TAWANA Mcneil left the client so the client would regulate hopefully. This clinician and [facility] Mariam Mcneil consulted with the client's parents. The client's parents stated that the client has been experiencing increased paranoia over the last two weeks and had a DUI about a month ago. The client's parents report that the client has been in patient three times before and that one of those times they believe was involuntary and occured as the client was self harming with cutting and burning himself after a break up with his girlfriend. The client's parents state that the client has a pistol which they now have put in their gun safe. The client's parents state they know of no statements the client has made in the last two weeks about hurting himself or others or any behaviors in the last two weeks that put him in danger. Based on the provided information TAWANA Mcneil [facility] reported to the provider doctor Tuttle that she did not have enough to write an emergency examination on the client. The client became more escalated and held his door closed in his room in zone b, refusing to engage with these clinicians. Doctor Tuttle informed the client that if the client attempted to leave then doctor Tuttle would EE the client. The client then opened the door and accepted the offered antipsychotic medication. A full assessment and intake still needs to be done. Per Doctor Tuttle he is at this time considering the client to be voluntary. 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 Plan/Disposition Recommended Disposition: Other. Plan: The client is waiting in [facility] zone b. Reports/communication Outcome discussed with: ED/Personnel
== END 2025-02-22 17:07 | disposition home or self-care (01) ==
PROVIDERS: Emergency Provider Emergency Medicine; PCP Nurse Practitioner Family
DX: F30.9 Manic episode, unspecified (principal); F22 Delusional disorders; M54.9 Dorsalgia, unspecified
CPT/HCPCS: 99291; 99285; 96374; 36415; 00123; 71275; 80048; 93005; 96127; 96361; G0378; 71046; 84484; 85025; 85379; 93010; J1885; J2060; J3490

== ENCOUNTER 2025-03-08 10:56 | Emergency (ER) | payer MEDICAID, SELFPAY ==
[2025-03-08 11:10] VITALS: BP 136/83; PULSE 90; RESP 18; TEMP 36.8; O2SAT 98
--- NOTE | 2025-03-08 11:55 | W.ED.GENAD ---
Discharge Plan Discharge Details Chief Complaint: PsychEval Primary Care Provider: SALVADOR VAUGHAN ED Provider: Nathaly Marrufo Home Meds and New Rx's Prescriptions: No Action sertraline [Zoloft] 50 mg Tablet 100 mg PO DAILY Patient Comments: patient ran out of medication over a month ago lisdexamfetamine [Vyvanse] 30 mg Capsule 30 mg PO DAILY Patient Comments: patient states he has been out of medication for over a month risperidone 1 mg tablet 1 mg PO BID Qty: 90 0RF Discharge Instructions Additional Instructions: I called and spoke to the palliative care nurse at [facility]. Your provider is aware that your medications need to be refilled, he is requesting that you come in for an appointment in order to do this. We were able to arrange for you to have a follow-up at 9:30 AM on April 04. I recommend that you keep this appointment. If you are unable to make it please call and reschedule at least 24 hours prior. HPI General Date/Time Provider Initiated Documentation: 03/08/25 11:03. HPI Narrative: Giuseppe Lewis) is a 19-year-old male who presents to the emergency department today companied by his father for evaluation after counselor told him to present to ED for concern of HI. He reports that this is worsening with a counselor, told her that he has a knock off/ kill list; he claims that this refers to a to do list of tasks rather than people to be eliminated. He denies SI, HI, hallucinations self-harm behaviors, recent illness, drug use other than marijuana, alcohol use. He is concerned that he needs to have his Remicade and Vyvanse refilled by his PCP, but does not have an appointment for another month, is wondering if I might be able to reach out and see about getting his meds refilled. Physical exam reassuring. Giuseppe is alert and oriented, in no acute distress, easily conversational. Easy work of breathing, able to speak in full sentences. Moving all extremities equally History and presentation overall raises low suspicion for homicidal ideation, as patient is easily able to explain the use of the term kill list. Patient would benefit from crisis eval. Patient medically clear with baseline labs, no acute abnormalities noted. UDS significant for positive THC, consistent with known marijuana use. I did place a call to [facility], spoke with Naomi, palliative care nurse. Patient does have a history of frequent no-shows to appointments, and PCP Salvador Vaughan is not comfortable with refilling prescriptions without in person appointment. We were able to arrange for follow-up appointment at 9:30 AM on 04/04/2025. This information was included on discharge paperwork. I spoke with Vee, [facility] crisis counselor, who evaluated patient. She agrees that patient has not expressed any homicidal ideation and feels he would be appropriate for safety plan, however he is willing to have telepsychiatry meet with him to further assess. Telepsychiatry order Handoff report given to Tiffanie Cobos PATIENT'S LIBRARIAN, evening RODGER. Telepsychiatrist currently evaluating patient. Related Data Home Medications ?Medication ?Instructions ?Recorded ?Confirmed lisdexamfetamine 30 mg capsule 30 mg PO DAILY 03/13/22 03/08/25 (Vyvanse) sertraline 50 mg tablet (Zoloft) 100 mg PO DAILY 03/13/22 03/08/25 risperidone 1 mg tablet 1 mg PO BID #90 tabs 02/22/25 03/08/25 Previous Rx's ?Medication ?Instructions ?Recorded risperidone 1 mg tablet 1 mg PO BID #90 tabs 02/22/25 Allergies Allergy/AdvReac Type Severity Reaction Status Date / Time No Known Allergies Allergy Verified 03/08/25 11:25 General Stated Complaint: PsychEval JAMILA: 2 Exam Const General: cooperative, healthy appearing, comfortable, no acute distress, well developed and well groomed Nutritional Appearance: average body habitus Orientation: alert and oriented x3 Resp Effort & Inspection: normal respiratory effort and able to speak in complete sentences Skin General skin exam: no rashes or lesions noted Trauma: no lacerations or abrasions Neuro General: patient alert, patient oriented x3, gait normal, tone normal and moves all extremities Speech: speech normal Extrem General: normal to inspection Psych Appearance: grossly normal Mental Status: mental status grossly normal Affect: normal affect Attitude: cooperative and avoids eye contact Thought Process: normal Thought Content: no homicidality and suicidality Course Vital Signs Vital signs: Vital Signs Temperature 36.8 C 03/08/25 11:10 Pulse 90 03/08/25 11:10 Respiratory Rate 18 03/08/25 11:10 Blood Pressure 136/83 03/08/25 11:10 Pulse Oximetry 98 03/08/25 11:10 Temperature 36.8 C 03/08/25 11:10 Temperature Source Tympanic 03/08/25 11:10 Pulse 90 03/08/25 11:10 Respiratory Rate 18 03/08/25 11:10 Blood Pressure 136/83 03/08/25 11:10 Blood Pressure Position Sitting 03/08/25 11:10 Pulse Oximetry 98 03/08/25 11:10 Oxygen Delivery Method Room Air 03/08/25 11:10 Oxygen Flow Rate 0 03/08/25 11:10 Pain Level 0 03/08/25 11:10 Medical Decision Making Quality:SDOH Health Related Social Needs: Health related social needs risk of homeless food insecurity house/econ circumstance lonely/isolated Health related social needs details 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 Pt has support through family. PFSH All Active Problems (Updated 02/22/25 @ 00:09 by Otoniel Tuttle DO) Windy (Acute) Back pain (Acute) Acute paranoia (Acute) Social History Smoking/Tobacco Use Status: Former Tobacco Use Quit Date: 01/30/25 Smoking risk assessment performed?: Yes Alcohol Intake: former Drug use: Daily Substance use type: marijuana and hallucinogens Housing: house Do you feel safe at home: Yes Do you feel safe in your relationship?: Yes
[2025-03-08 11:59] LABS: Cannabinoids THC Positive (Negative); METHADONE URINE SCREEN Negative (Negative)
[2025-03-08 12:10] LABS: Abs Immature Grans 0.01 10^3/uL (0.0-0.06); HCT 38.9 % (40.0-50.0); HGB 12.8 g/dL (13.5-17.5); Immature Grans % 0.2 %; MCH 27.1 pg (27.0-33.0); MCHC 32.9 % (32.0-36.0); MCV 82 fL (80-95); MPV 8.6 fL (8.0-11.0); Platelet Count 368 10^3/uL (130-400); RBC 4.72 10^6/uL (4.36-5.78); RDW 12.7 % (11.8-14.1); RDW-SD 38.1 fL; WBC 6.60 10^3/uL (4.4-10.8)
[2025-03-08 12:24] LABS: Glucose Negative (Negative)
[2025-03-08 12:57] LABS: ALT 33 U/L (16-63); AST 16 U/L (15-37); Albumin 3.5 g/dL (3.4-5.0); Alkaline Phosphatase 67 U/L (46-116); Anion Gap 10.9 mmol/L (3-11); BUN 14 mg/dL (7-18); Bilirubin, Total 0.2 mg/dL (0.2-1.0); CO2 26.1 mmol/L (21.0-32.0); Calcium 8.8 mg/dL (8.5-10.1); Chloride 102 mmol/L (98-107); Estimated GFR 134.44 (mL/min/1.73m2); Glucose 104 mg/dL (74-106); Potassium 3.9 mmol/L (3.5-5.1); Sodium 139 mmol/L (136-145); TSH (W/Ref FT4) 2.75 uIU/mL (0.36-3.74); Total Protein 8.0 g/dL (6.4-8.2)
[2025-03-08 13:02] LABS: Acetaminophen < 2 ug/mL (10-30); Salicylate < 2.8 mg/dL (<2.8)
--- NOTE | 2025-03-08 16:23 | PSYCO_ITS ---
Date of service: 03/08/25 Time of Service: 16:24 Summary Note PSYCHIATRY CONSULT NOTE: INITIAL EVALUATION Date/Time:?03/08/2025 4:18:23 PM Name:Ondina Rodriguez :?2005 Location of the patient:?[facility] ED Consulting Array Clinician:?Srinivas Roach Location of the clinician:?[facility] Length of Consult:?45 minutes SUMMARY 19-year-old male, with history of psychotic disorder, current cannabis use, history of psychiatric hospitalization, with no history of self-harming/suicidal behavior/violent behavior, referred to hospital by provider for homicidal ideation. Patient was referred to the emergency department from his therapist office with concern about possible homicidal ideation. He apparently was meeting with a therapist for the first time and during the assessment he somehow ended up talking about his knock off list that he calls a hit list. This concerned the therapist enough to refer him to the emergency department. He is irritated and annoyed with being here, and says that he uses this terminology for his list of things he has to do at home, essentially a list of chores and tasks he has to complete. His father says that his family tends to engage in sarcasm and that Eddie sometimes carries that too far. He was not in the room for the conversation but has had no safety concerns about his son and no concerns that he had any thoughts about hurting anyone or himself. He is concerned about his sons paranoia and some of his thinking, and is committed to making sure he gets into treatment and sees a psychiatrist. Patient also has been smoking cannabis and family has concerns that it makes him delusional and paranoid. He continues to be positive on UDS. Patient denies any thoughts of hurting himself or anyone else. He denies any AVH. At this point, I do not see any need for psychiatric admission and he is recommended for discharge to continue with outpatient services. Patient denies SI/HI, does not display signs or symptoms of serious psychosis, contracts reliably for safety, is future oriented, is able to provide for basic needs/safety, has reliable collateral support who confirms safety. Patient does not appear to be at acute risk to self or others due to psychiatric illness or to require inpatient psychiatric hospitalization. Working Diagnoses:? F12.259 Cannabis dependence with psychotic disorder, unspecified; F28 Other psychotic disorder not due to a substance or known physiological condition Rule Out Diagnoses:? CPT Codes:?27060 - Psychiatric Diagnostic Evaluation with Medical Services PLAN Disposition:? Discharge type: Discharge to community resource ? Safety planning: Patient has identified listed collateral contact as support person for post-discharge care; Patient understands and agrees with discharge plan, is aware that should symptoms worsen to return to the ED or call 911 ? Resource information to be provided by site: outpatient mental health treatment, information about patient's diagnosis, treatment recommendations, including dosage and side effects of any prescribed medications ? Observation level ? Psychiatric 1:1 needed??No psych 1:1 needed Work-up:? Pharmacological:? No psychiatric medication recommendations at this time ? Is patient psychotic? - No; Follow up needed while in the hospital??none Other:? Parts of this note were dictated using voice recognition software and may contain small irregularities and grammatical errors which are unintentional. ? If questions arise about the psychiatric care of this patient, please call the [facility]?to request a follow-up consult. ?Please do not contact me individually through the EMR chat as I am not?regularly logged on to?this system. The psychiatrist for the follow-up visit may be a different psychiatrist Discussed plan with onsite team automobile assembler:?Yes ? Ines Zamora HIGHBALLER HISTORY This evaluation was conducted remotely with the assistance of onsite staff via HIPAA-compliant video call. Patient consented to proceed with the telehealth visit. Requested by:?Keshawn Louise MD Sources of information:?Patient, medical record History of Present Illness:? 19-year-old male, living with family, single, unemployed, with history of psychotic disorder, current cannabis use, history of psychiatric hospitalization, with no history of self-harming/suicidal behavior/violent behavior, referred to hospital by provider for homicidal ideation. UDS positive for cannabis, Alcohol undetectable. In the hospital, patient has been in behavioral control with no reported issues. Patient is a 19-year-old male who presented to the emergency department by his father for evaluation after a counselor told him to come in for possible homicidal ideation. He apparently told her that he has a knock off list and he says that this actually refers to the list of tasks he needs to do rather than people to be eliminated. He denies SI/HI/AVH. He otherwise has no other complaints. Appears that he is on Vyvanse for ADHD. He was seen in the emergency department in the past, by myself, for paranoia. There has been a question of a psychotic disorder in the past but no clear diagnosis. He has been concerned about whether some of this has been secondary to substance use.. On psychiatric evaluation, patient is reliable, disorganized, cooperative, pleasant, able to give clear history. Patient says he feels like he isnt getting anywhere and wants his father to talk. Father says he got a therapist and he met with her for the first time this morning and he said something concerning enough to give him an ultimatum He says he made a comment about having a knock out list and his hit list. He says the terminology got her concerned because she didn't know him. he says the main issue ss on the list are chores. Father says he didnt explain that they didnt try to come to an understanding or anything like that. he thinks she wanted the ED to determine SI/HI. He says family has sarcasm and Giuseppe crosses lines with sarcasm frequently and doesnt have safety concerns. Father is concerned about his paranoia, and doesnt have a clear grasp on things which are real to other people. He is a gentle caring kid but wants him to get treatment because he doesnt want this to get worse. 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 Stressed by finances.. Collateral Contacted Contacted --. Collateral reports patient poses no immediate safety concerns and is safe to return home, understands and agrees with discharge plan, and is aware that should symptoms worsen to return to the ED or call 911. Collateral reports patient has no access to firearms. PSYCHIATRIC REVIEW OF SYSTEMS (symptoms in past two weeks) Pertinent Positives:?irritability Pertinent Negatives:?no depressed mood/no anhedonia/no hopelessness/no insomnia/no aggressive behavior/no agitation/no command hallucinations/no anxiety/no panic attacks/no impulsivity PSYCHIATRIC HISTORY Past Psychiatric Diagnoses/Problems:?psychotic disorder Psychiatric Treatment:?Hospitalizations:?psychiatric hospitalization ???Other Past treatment:?therapy, medication management ???Current treatment:?therapy Drug/Alcohol History ???Current excessive drug/alcohol use:?cannabis ???Past excessive drug/alcohol use:?none ???Drug/alcohol use comment:?Treatment:?none ???Withdrawal symptoms:?none ???UDS results:?UDS positive for cannabis ???BAL results:?undetectable ???Active withdrawal Protocol:? Stressors:?financial problems, exacerbation of mental illness, chronic substance abuse, job stress Trauma:?none Family Psychiatric History:?none HEALTH HISTORY Medical Problems:?Crohn's Dz Is patient linked with PCP??yes Psychiatric and other clinically relevant medications:?none Allergies/Adverse Medication Reactions:?NKDA Physical Findings:?no clinically significant changes in vital signs, no clinically significant abnormal lab values DEMOGRAPHICS/SOCIAL HISTORY Gender:?male Living Situation:?living with family Relationship Status:?single Education:?high school/GED Employment:?unemployed Social Support Network:?supportive social network of family or friends Legal History:?none Special Considerations:?none RISK EVALUATION Suicidality/self-injury:?no history of suicidal/self-harming behavior Primary Suicide Screening (PSS-3) 1. In the past two weeks, have you felt down, depressed, or hopeless??NO 2. In the past two weeks, have you had thoughts of killing yourself??NO 3. In your lifetime, have you ever attempted to kill yourself??NO 3a. Within the past 6 months??NO ESS-6 Secondary Screen ( If #2 is yes or #3a is yes within the past 6 months, then complete secondary screen) 1. Positive on PSS-3 questions 2 & 3 ? active suicidal ideation with a past attempt??Screen not applicable 2. Have you been thinking about how you might kill yourself??Screen not applicable 3. Have you had some intention of acting on your thoughts??Screen not applicable 4. Lifetime psychiatric hospitalization??Screen not applicable 5. Has drinking or substance abuse ever been a problem for you??Screen not applicable 6. Current irritability, agitation, or aggression??Screen not applicable PSS-3/ESS-6 Secondary Screen Scoring:?Low Risk-PSS3 screen negative PSS-3/ESS-6 Scoring Interpretation Legend PSS-3 screen incomplete [Blank PSS-3 questions #2 OR #3a] PSS-3 screen unable to assess [Unable to Assess responses on PSS-3 questions #2 AND #3a] Mild [No current attempt AND No suicide plan or intent AND Score (0-2)] Moderate [No current attempt AND Active suicidal ideation with plan or intent (not both) OR Score (3-4)] Severe [Current attempt OR Suicide plan and intent OR Score (5-6)] HI/Violence/Property Destruction:?no history of violent/aggressive behavior Access to Firearms:?none. Collateral reports patient has no access to firearms. Grave disability/Poor self-care:?no Psychosis:?No Protective Factors:?identifies reasons for living; future orientation High Utilization Criteria:?none Signs of Secondary Gain:?none MENTAL STATUS EXAM Appearance and Attire:? Normal, Good eye contact, Well groomed Psychomotor agitation:? No abnormality Attitude and behavior:? Guarded Speech:? No abnormality Mood:? Euthymic Affect:? Irritable Thought Process:? Linear, Logical, Coherent Thought content:? No suicidal ideation, No homicidal ideation, No paranoia, No delusions Perception:? No hallucinations Intelligence:? Average Abstraction:? Appropriate Language:? No abnormality Orientation:? Oriented x 4 Sensorium:? Normal Knowledge:? Appropriate for education and socioeconomic status Memory:? Intact Insight:? Mild impairment Judgment:? Mild impairment SUMMARY RISK ASSESSMENT Current Suicide Risk Elevated??PSS-3/ESS-6 Scoring: Low Risk-PSS3 screen negative? Current Violence Risk Elevated??No Issues with ability to care for self.?No Srinivas Roach, , [facility]
--- NOTE | 2025-03-08 18:22 | PDOC.MHCN_ITS ---
Date of service: 03/08/25 Time of Service: 13:30 PHQ-9 Over the last 2 weeks, how often have you been bothered by any of the following problems? 1. Little interest or pleasure in doing things: several days 2. Feeling down, depressed, or hopeless: nearly every day 3. Trouble falling or staying asleep, or sleeping too much: nearly every day 4. Feeling tired or having little energy: not at all 5. Poor appetite or overeating: several days 6. Feeling bad about yourself - or that you are a failure or have let yourself and your family down: more than half the days 7. Trouble concentrating on things, such as reading the newspaper or watching television: more than half the days 8. Moving or speaking so slowly that other people could have noticed? - Or the opposite - being so fidgety or restless that you have been moving around a lot more than usual: several days 9. Thoughts that you would be better off or of hurting yourself in some way: not at all Total score: 13 Source: Developed by Drs. Den Serrato, Johanne Smith, Rupesh Escamilla and colleagues, with an educational kayla from [employer]. Suicide Severity Rate CSSRS Have you wished you were or wished you could go to sleep and not wake up?: No Have you actually had any thoughts of killing yourself?: No CSSRS3 Have you ever done anything, started to do anything or prepared to do anything to end your life?: No Screening Score Total Score: 0 Screening: Negative Mental Health Emergency Note Release [facility] release signed:: Yes Reason for Visit Last visit began 02/21/25 resulting in safety plan after assessment In the last 2 weeks has the pt presented for ES prior to today?: No Client Information Client is: Adult Outpatient Well Housed: Yes Current Treatment Team if applicable First care retail team leader: Name: Dr. Shannen Sims Role: PCP Contact Info: [phone] Non Suicidal Self Injury Current: No History: No Safety Risk/Harm to Self or Others Current Ideation to Harm Self or Others: No Risk: Does risk to harm exist?: No Risk: Low Risk Duty to warn indicated: No Asssessment/Mental Status Appearance: Well groomed Attitude: Cooperative, Guarded and Friendly Behavior: Unremarkable Speech: Normal Affect: Normal and Cogruent with mood Mood: Euthymic and Anxious Thought process: Unremarkable, Poverty of content and Other (Does not offer information, must be asked to expand on answers) Hallucinations: No Delusions: No evidence Attention: Unremarkable Perception: Not impaired Orientation: Fully orientated Memory: Intact Insight: Good Judgement: Good Neurovegetative Symptoms Sleep: Decrease Appetitie: Disordered Interests: No change Energy: Increase Libido: No change Substance Use: Do you use nicotine?: No Have you used substances in the last 7 days?: yes, THC Impression The client is a 19-year-old male who lives independently in [facility]. He presented as clean and well-groomed, appearing slightly angry regarding his current situation and expressing fears of being involuntarily sent for evaluation. Client reported experiencing financial and housing insecurity, citing insufficient income from his new job in comparison to his unemployment insurance. His symptoms align most closely with major depressive disorder and manic episodes, exacerbated by a recent loss of a relationship. Due to financial constraints, the client could not afford his medications, leading to a loss of therapeutic levels required for managing his ongoing medical and mental health conditions. He recently met a new therapist, during which he discussed a Kill List. This Clinician, who was not present during the session, sought clarification during the crisis assessment at the emergency department. The client clarified that the Kill List refers to his Knock It Out list, a to-do list aimed at getting his life back on track. He indicated that the clinician did not allow him the opportunity to elaborate on this statement and called his father into the session. The meeting culminated in the therapist instructing the client to make a choice between going to the emergency department with his father or having the therapist call the police for transport. Despite these concerns, the client denies any suicidal or homicidal thoughts, actions, plans, or intent and does not engage in non-suicidal self-injury. He has established connections within the community and comes from a supportive family. However, he expressed difficulties in trusting therapists, citing previous disappointments, particularly concerning today's experience. Prior to discharge, the client participated in safety planning. Resources Reosurces reviewed and given:: 988, NK and Other Plan/Disposition Recommended Disposition: PCP/Office visit, [facility] [place] Services [facility]: Therapy, Therapy, Med management and Community resources. Plan: Client engaged in Safety Planning, will follow-up with PCP to resume treatment and medication management. Client declined offer for voluntary inpatient mental health treatment and does not meet criteria for involuntary stay. Reports/communication Outcome discussed with: ED/Personnel
--- NOTE | 2025-03-08 18:37 | PDOC.MHCN ---
Date of service: 03/08/25 Time of Service: 13:30 Mental Health Emergency Note Release [facility] release signed:: Yes Reason for Visit In the last 2 weeks has the pt presented for ES prior to today?: No Plan/Disposition Recommended Disposition: PCP/Office visit, [facility] Services [facility] Services: Therapy and Other, Therapy and Med management. Reports/communication Outcome discussed with: ED/Personnel
== END 2025-03-08 17:15 | disposition home or self-care (01) ==
PROVIDERS: Nurse Practitioner Family; Emergency Provider Registered Nurse Emergency; PCP Nurse Practitioner Family
DX: F12.259 Cannabis dependence with psychotic disorder, unspecified (principal); Z87.891 Personal history of nicotine dependence
CPT/HCPCS: 00123; 80053; 80307; 96127; 99284; 80320; 80329; 81003; 84443; 85025

== ENCOUNTER 2025-04-21 15:38 | Emergency (ER) | payer MEDICAID, SELFPAY ==
[2025-04-21] VITALS (40 sets, daily range): BP systolic 122–141; BP diastolic 78–91; PULSE 71–108; RESP 15–18; TEMP 36.6–36.8; O2SAT 95–99
--- NOTE | 2025-04-21 16:15 | DI.CT_ITS ---
Exam(s) CT ABDOMEN PELVIS W EXAM: CT ABDOMEN PELVIS W CLINICAL HISTORY: Ulcerative Colitis, Crohns Flare. TECHNIQUE: Imaging Protocol: Axial computed tomography images with coronal and sagittal reformatted images were created and reviewed CONTRAST MATERIAL: Intravenous: Omnipaque-350 75cc Oral: Yes. Oral contrast was also administered for bowel opacification. COMPARISON: CT CT ABDOMEN PELVIS W from 01/26/2024 FINDINGS: VISUALIZED LUNG BASES: No nodules nor pleural effusions evident. ABDOMEN: LIVER: No focal lesions. No dilated intrahepatic ducts. BILIARY: No acute gallbladder pathology. CBD is not dilated. PANCREAS: Unremarkable. No masses. Pancreatic duct is not dilated. SPLEEN: Splenomegaly again noted. Craniocaudal measurement of the spleen is 15 cm. There are no splenic masses. Splenic and portal veins are patent. ADRENALS: There are no significant adrenal masses. KIDNEYS:No cysts evident. No solid renal masses. No calculi nor hydronephrosis.. ABDOMINAL AORTA: Abdominal aorta is not enlarged. LYMPH NODES:There are multiple small mesenteric and periaortic lymph nodes. These are probably related to the colon pathology. ABDOMINAL WALL: No evidence of significant anterior abdominal wall nor inguinal hernia. GI: There is significant circumferential thickening of the wall of the rectum and sigmoid as well as some moderate thickening of the wall of the descending- left colon at and distal to the splenic flexure.. The administered oral contrast has not yet reached the colon but there does not appear to be small bowel obstruction. Small bowel loop diameters are upper normal. There is no oral contrast yet within the terminal ileum. Appendix is not identified. There is no evidence of obvious appendicitis. No obvious findings in stomach. Somewhat patulous duodenum. PELVIS: LYMPH NODES: Slightly prominent lymph nodes around the aortic bifurcation. There is no prominent intrapelvic nor inguinal adenopathy. REPRODUCTIVE: Prostate size is normal. Seminal vesicles unremarkable. URINARY BLADDER: No calculi nor obvious masses evident OSSEOUS: No fractures and no significant osseous lesions. IMPRESSION: 1. Multifocal trans mural colitis pattern most prominent in the rectum and sigmoid and also evident in the descending-left colon. Consistent with inflammatory bowel disease either chronic ulcerative colitis or Crohn's colitis. 2. There is no evidence of obvious bowel obstruction, free air, nor abscess. Preliminary virtual Radiology report reviewed RADIATION DOSE DELIVERED: 295.04mGy.cm Total DLP DATA REPOSITORY: All CT scans at this facility are submitted to the National Radiology Data Registry (NRDR) Dose Index Registry (DIR) with the [employer] (ACR). RADIATION OPTIMIZATION: All CT scans at this facility use at least one of these dose optimization techniques: automated exposure control; mA and/or kV adjustment per patient size (includes targeted exams where dose is matched to clinical indication); or iterative reconstruction.
[2025-04-21 16:25] LABS: Abs Immature Grans 0.08 10^3/uL (0.0-0.06); HCT 40.5 % (40.0-50.0); HGB 13.6 g/dL (13.5-17.5); Immature Grans % 0.6 %; MCH 26.6 pg (27.0-33.0); MCHC 33.6 % (32.0-36.0); MCV 79 fL (80-95); MPV 8.1 fL (8.0-11.0); Platelet Count 463 10^3/uL (130-400); RBC 5.12 10^6/uL (4.36-5.78); RDW 12.9 % (11.8-14.1); RDW-SD 36.9 fL; WBC 12.93 10^3/uL (4.4-10.8)
[2025-04-21 16:26] LABS: ESR 52 mm/hr (0-15)
--- NOTE | 2025-04-21 16:30 | ED.GENADUL_ITS ---
Discharge Plan Disposition Patient Disposition: Admit to [facility] Condition: Stable Discharge Details Clinical Impression: Ulcerative colitis with rectal bleeding Primary Care Provider: SALVADOR VAUGHAN ED Provider: Aubrie Ramirez Home Meds and New Rx's Prescriptions: No Action prednisone 10 mg tablet 10 mg PO DAILY Patient Comments: TAKE ONE TABLET BY MOUTH EVERY DAY FOR 14 DAYS HPI General Mode of arrival: ambulatory . Date/Time Provider Initiated Documentation: 04/21/25 15:48 . Limitations to Documentation: no limitations . Information obtained by: patient, family, RN notes reviewed and old records reviewed . HPI Narrative: 19-year-old male presents to the ER with a chief complaint of increased loose stools, bloody and mucus stools over the last week. Has approximately 4-5 loose stools a day with dark bloody mucus, also has had decreased appetite, did eat some Posta last night however family does report that patient has not eaten well for the last few days. He does endorse some nausea and retching with the episodes. Reports increased fatigue and unable to get out of bed. He is taking prednisone 10 mg daily x 2 weeks which was started approximately 3 days ago. Patient [facility] Past medical history includes Crohn's, schizo-affective disorder. Related Data Home Medications ?Medication ?Instructions ?Recorded ?Confirmed prednisone 10 mg tablet 10 mg PO DAILY 04/21/2504/02 Allergies Allergy/AdvReac Type Severity Reaction Status Date / Time No Known Allergies Allergy Verified 04/21/25 15:43 General Stated Complaint: Abd Prob JAMILA: 3 Review of Systems All systems reviewed & are unremarkable except as noted in HPI and below Constitutional Constitutional: Reports as per HPI, Reports fatigue, Reports lethargy, Reports malaise, Reports poor appetite and Reports weight loss Gastrointestinal Gastrointestinal: Reports as per HPI, Reports abdominal pain, Reports hematochezia (Dark stools), Reports change in bowel habits, Reports change in stool character, Reports cramping, Reports diarrhea, Reports loose stools and Reports nausea Endocrine Endocrine: Reports fatigue Exam Narrative Exam Narrative: Constitutional: Alert and oriented x3. Appears stated age. Thin body habitus. Pale. Head: Normocephalic, no trauma. Eyes: Pupils PERRL, Red reflex noted, EOM's intact. Eyelids symmetrical without lesions, discharge, or swelling. Chest: Mildly tachycardic upon arrival, Normal S1, S2, distal pulses intact. Resp: Lungs clear to auscultation bilaterally, no wheezes, rales, or rhonchi. Abdomen: Soft, non-distended, tenderness with palpation left lower quadrant and left upper quadrant. Musculoskeletal: Normal gait, Moves all 4 extremities without difficulty. Skin: No suspicious rashes or lesions. Capillary refill less than 2 sec. Neurologic: Cranial nerves II-XII intact. Alert and oriented x 3. Motor: No deficits noted. Sensory: Intact bilaterally all 4 extremities. Hematologic/Lymphatic: No ecchymosis, no lymphadenopathy. Course Vital Signs Vital signs: Vital Signs Temperature 36.6 C 04/21/25 15:39 Pulse 108 H 04/21/25 15:39 Respiratory Rate 15 04/21/25 15:39 Blood Pressure 127/86 04/21/25 15:39 Pulse Oximetry 98 04/21/25 15:39 Temperature 36.6 C 04/21/25 15:42 Temperature Source Temporal Artery Scan 04/21/25 15:42 Pulse 108 H 04/21/25 15:42 Respiratory Rate 15 04/21/25 15:42 Blood Pressure 127/86 04/21/25 15:42 Blood Pressure Position Sitting 04/21/25 15:42 Pulse Oximetry 98 04/21/25 15:42 Oxygen Delivery Method Room Air 04/21/25 15:42 Oxygen Flow Rate 0 04/21/25 15:42 Pain Level 5 04/21/25 15:42 Lab/Test Results Lab/Test Results: Laboratory Tests Range/Units 04/21/25 16:15 WBC (4.4-10.8) 10^3/uL 12.93 H RBC (4.36-5.78) 10^6/uL 5.12 Hgb (13.5-17.5) g/dL 13.6 Hct (40.0-50.0) % 40.5 MCV (80-95) fL 79 L MCH (27.0-33.0) pg 26.6 L MCHC (32.0-36.0) % 33.6 RDW (11.8-14.1) % 12.9 Plt Count (130-400) 10^3/uL 463 H MPV (8.0-11.0) fL 8.1 Immature Gran % % 0.6 Neutrophils % % 83.9 Lymphocytes % % 9.4 Monocytes % % 5.6 Eosinophils % % 0.1 Basophils % % 0.4 Nucleated RBC % (0.0-0.3) % 0.0 Absolute Neutrophils (1.2-6.7) 10^3/uL 10.85 H Absolute Lymphocytes (1.2-3.4) 10^3/uL 1.22 Absolute Monocytes (0.1-0.8) 10^3/uL 0.72 Absolute Eosinophils (0.0-0.7) 10^3/uL 0.01 Absolute Basophils (0.0-0.2) 10^3/uL 0.05 ESR (0-15) mm/hr 52 H VBG Lactate (<or=2.0) mmol/L 2.5 H* Medical Decision Making 19-year-old male presents to the ER with a chief complaint of increased loose stools, bloody and mucus stools over the last week. Has approximately 4-5 loose stools a day with dark bloody mucus, also has had decreased appetite, did eat some Posta last night however family does report that patient has not eaten well for the last few days. He does endorse some nausea and retching with the episodes. Reports increased fatigue and unable to get out of bed. He is taking prednisone 10 mg daily x 2 weeks which was started approximately 3 days ago. Patient does see GI at [facility] in offsite hospital. Past medical history includes Crohn's, schizo-affective disorder. Workup ordered including CBC CMP, lactate, CRP ESR, lipase CT abdomen pelvis with oral contrast ordered. Zofran, 125 mg of methylprednisolone, 50 mg of Toradol IV and 1 L of LR ordered. White blood cell count is 12.93, platelet count is 463 absolute neutrophils 10.85, ESR is elevated at 52 lactate is 2.5 A second liter of LR ordered, 40 mg of Protonix IVP ordered. Patient has acute on chronic Crohn's colitis, ulcerative colitis. ESR is 52 PT 11.5 INR 1.2, glucose 174 iron is 17 transferrin 6% TIBC is 272, CRP is 11.05, albumin is 2.9, vitamin B12 is elevated at 1005 her [place] vitamin D is 19, urinalysis is pending at this time, negative for C. difficile, CT images returned, will consult GI [facility]. 194:[facility] transfer center called. Transfer center recalls they are not able to get hold of GI at this time GI has not called them back. I did discuss possible admission with patient who verbalized understanding and is in agreement with the plan. Will seek admission for acute on chronic ulcerative colitis flare. 225: Hospitalist paged. [phone]: Spoke with Dr. Arechiga with hospitalist who agrees to accept patient for admission for symptomatic treatment. Patient informed of plan of care and agreement. Additional call received from hospitalist and recommends GI consult prior to accepting patient. Currently pending GI consult. Care is to be handed off to oncoming provider Janeth Ramirez pending GI consult. This text was generated using [employer]ochacha[employer] system, please disregard any oddities of phrase or misspellings. Medical Records Medical records reviewed: Yes I reviewed the patient's medical records. Imaging Data Radiologic Study: Imaging: CT Scan Radiologist's impression: CT CHEST PE CTA 02/21/2025 16:20 FINDINGS: Liver: No mass. Gallbladder and biliary ducts: No calcified stones. No gross ductal dilation. Pancreas: No ductal dilation. No mass . Spleen: Mild splenomegaly at 15 cm without focal lesions. Adrenal glands: No suspicious mass. Kidneys and ureters: No hydronephrosis. No masses. Stomach and bowel: Moderate to severe wall thickening of the rectum, sigmoid colon with no gross hyperemia. Loss of haustration. Moderate wall thickening descending colon. Trace surrou nding edema at these locations, suspected mild wall thickening of cecum. No definite the small bowel. No definite wall thickening of the terminal ileum. Contrast in mid small bowel loops. No obstruction. No focal pathology in the stomach or duodenum on CT. Appendix: No evidence of appendicitis. Intraperitoneal space: No free air. No significant fluid collection. Vasculature: No abdominal aortic aneurysm. Lymph nodes: Mesenteric lymph nodes prominent in number but not significantly enlarged almost certainly secondary to the colonic pathology. Urinary bladder: No gross wall thickening. Reproductive: Unremarkable as visualized. Bones/joints: No acute fracture. Soft tissues: No suspicious lesions. IMPRESSION: Multifocal colitis, severe distally and severe proctitis, consistent with a history of Crohn disease. Favor this is acute on chronic. No obstruction. Thank you for allowing us to participate in the care of your patient. Dictated and Authenticated by: Ese Naav MD Lab Data Lab results reviewed: Yes I reviewed the patient's lab results. Labs: 04/21/25 18:24 Stool Stool Occult Blood (APRYL) - Final Laboratory Tests Range/Units 04/21/25 04/21/25 04/21/25 16:15 16:46 18:24 WBC (4.4-10.8) 10^3/uL 12.93 H RBC (4.36-5.78) 10^6/uL 5.12 Hgb (13.5-17.5) g/dL 13.6 Hct (40.0-50.0) % 40.5 MCV (80-95) fL 79 L MCH (27.0-33.0) pg 26.6 L MCHC (32.0-36.0) % 33.6 RDW (11.8-14.1) % 12.9 Plt Count (130-400) 10^3/uL 463 H MPV (8.0-11.0) fL 8.1 Immature Gran % % 0.6 Neutrophils % % 83.9 Lymphocytes % % 9.4 Monocytes % % 5.6 Eosinophils % % 0.1 Basophils % % 0.4 Nucleated RBC % (0.0-0.3) % 0.0 Absolute Neutrophils (1.2-6.7) 10^3/uL 10.85 H Absolute Lymphocytes (1.2-3.4) 10^3/uL 1.22 Absolute Monocytes (0.1-0.8) 10^3/uL 0.72 Absolute Eosinophils (0.0-0.7) 10^3/uL 0.01 Absolute Basophils (0.0-0.2) 10^3/uL 0.05 ESR (0-15) mm/hr 52 H PT (9.1-11.1) sec 11.5 H INR (0.9-1.1) 1.2 H VBG Lactate (<or=2.0) mmol/L 2.5 H* Sodium (136-145) mmol/L 140 Potassium (3.5-5.1) mmol/L 3.6 Chloride (98-107) mmol/L 102 Carbon Dioxide (21.0-32.0) mmol/L 27.4 Anion Gap (3-11) mmol/L 10.6 BUN (7-18) mg/dL 9 Creatinine (0.70-1.30) mg/dL 1.0 Est GFR (CKD-EPI 2020) (mL/min/1.73m2) 109.81 Glucose (74-106) mg/dL 174 H Calcium (8.5-10.1) mg/dL 9.4 Phosphorus (2.6-4.7) mg/dL 4.0 Magnesium (1.8-2.4) mg/dL 2.0 Iron (65-175) ug/dL 17 L TIBC (250-450) ug/dL 272 Transferrin % Sat (20-55) % 6 L Total Bilirubin (0.2-1.0) mg/dL 0.3 AST (15-37) U/L 13 L ALT (16-63) U/L 30 Alkaline Phosphatase (46-116) U/L 88 C-Reactive Protein (<or=0.5) mg/dL 11.05 H Total Protein (6.4-8.2) g/dL 8.2 Albumin (3.4-5.0) g/dL 2.9 L Lipase (<78) U/L 52 Vitamin B12 (193-986) pg/mL 1501 H 25-OH Vitamin D Total (30-100) ng/mL 19 L Stl C.difficile Tox PCR (Negative) Negative Add-On Test Request DONE Quality:SDOH Health Related Social Needs: Health related social needs risk of homeless food inse curity house/econ circumstance lonely/isolated Health related social needs details 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 Pt has support through family. PFSH All Active Problems (Updated 04/21/25 @ 19:50 by Tiffanie Cobos NP) Ulcerative colitis with rectal bleeding (Acute) Social History Smoking/Tobacco Use Status: Former Tobacco Use Quit Date: 01/30/25 Smoking risk assessment performed?: Yes Alcohol Intake: former Substance use type: former substance user Housing: house Do you feel safe at home: Yes Do you feel safe in your relationship?: Yes
[2025-04-21] MEDS: Lactated Ringers 1,000 ML 1000 ML IV ×2 (16:38→20:22)
[2025-04-21] MEDS: Ketorolac 15 MG/ML VIAL IVP (16:39)
[2025-04-21] MEDS: methylPREDNISolone SUCC 125 MG VIAL IVP (16:39)
[2025-04-21] MEDS: Ondansetron 4 MG/2 ML VIAL IVP (16:39)
[2025-04-21 16:51] LABS: ALT 30 U/L (16-63); AST 13 U/L (15-37); Albumin 2.9 g/dL (3.4-5.0); Alkaline Phosphatase 88 U/L (46-116); Anion Gap 10.6 mmol/L (3-11); BUN 9 mg/dL (7-18); Bilirubin, Total 0.3 mg/dL (0.2-1.0); C-Reactive Protein 11.05 mg/dL (<or=0.5); CO2 27.4 mmol/L (21.0-32.0); Calcium 9.4 mg/dL (8.5-10.1); Chloride 102 mmol/L (98-107); Estimated GFR 109.81 (mL/min/1.73m2); Glucose 174 mg/dL (74-106); Iron 17 ug/dL (65-175); Magnesium 2.0 mg/dL (1.8-2.4); Potassium 3.6 mmol/L (3.5-5.1); Sodium 140 mmol/L (136-145); Total Iron Binding Capacity 272 ug/dL (250-450); Total Protein 8.2 g/dL (6.4-8.2); Transferrin Sat 6 % (20-55)
[2025-04-21 17:02] LABS: INR 1.2 (0.9-1.1); Prothrombin Time 11.5 sec (9.1-11.1)
[2025-04-21] MEDS: Breeza Beverage 473 ML BTL PO ×2 (17:23→17:24)
[2025-04-21] MEDS: Omnipaque 350 MG/ML 50 ML BTL PO (17:35)
[2025-04-21 17:47] LABS: Vitamin B12 1501 pg/mL (193-986); Vitamin D 25 Total 19 ng/mL (30-100)
[2025-04-21 18:06] LABS: Lab Add On Test DONE
[2025-04-21 18:14] LABS: Lipase 52 U/L (<78)
[2025-04-21] MEDS: Omnipaque 350 MG/ML 100 ML BTL IJ (18:50)
[2025-04-21] MEDS: Normal Saline - Diluent 50 ML VIAL IJ (18:50)
--- NOTE | 2025-04-21 19:18 | DI.VRAD_ITS ---
PROCEDURE INFORMATION: Exam: CT Abdomen And Pelvis With Contrast Exam date and time: 04/21/2025 18:39 Age: 19 years old Clinical indication: Other: Ulcerative colitis, crohns flare TECHNIQUE: Imaging protocol: Computed tomography of the abdomen and pelvis with contrast. Radiation optimization: All CT scans at this facility use at least one of these dose optimization techniques: automated exposure control; mA and/or kV adjustment per patient size (includes targeted exams where dose is matched to clinical indication); or iterative reconstruction. Contrast material: [id number]; Contrast volume: 75 ml; Contrast route: INTRAVENOUS (IV); Other contrast: Oral, [id number], 50; COMPARISON: CT CHEST PE CTA 02/21/2025 16:20 FINDINGS: Liver: No mass. Gallbladder and biliary ducts: No calcified stones. No gross ductal dilation. Pancreas: No ductal dilation. No mass . Spleen: Mild splenomegaly at 15 cm without focal lesions. Adrenal glands: No suspicious mass. Kidneys and ureters: No hydronephrosis. No masses. Stomach and bowel: Moderate to severe wall thickening of the rectum, sigmoid colon with no gross hyperemia. Loss of haustration. Moderate wall thickening descending colon. Trace surrounding edema at these locations, suspected mild wall thickening of cecum. No definite the small bowel. No definite wall thickening of the terminal ileum. Contrast in mid small bowel loops. No obstruction. No focal pathology in the stomach or duodenum on CT. Appendix: No evidence of appendicitis. Intraperitoneal space: No free air. No significant fluid collection. Vasculature: No abdominal aortic aneurysm. Lymph nodes: Mesenteric lymph nodes prominent in number but not significantly enlarged almost certainly secondary to the colonic pathology. Urinary bladder: No gross wall thickening. Reproductive: Unremarkable as visualized. Bones/joints: No acute fracture. Soft tissues: No suspicious lesions. IMPRESSION: Multifocal colitis, severe distally and severe proctitis, consistent with a history of Crohn disease. Favor this is acute on chronic. No obstruction. Dictated and Authenticated by: Ese Nava MD. Orderin Chandrika Moreno MD
[2025-04-21 19:22] LABS: EPI 027-NAP1-B1 PRESUMPTIVE NEGATIVE
[2025-04-21] MEDS: Pantoprazole 40 MG VIAL IVP (20:00)
[2025-04-21] MEDS: Normal Saline 100 ML 400 ML (20:22)
[2025-04-21] MEDS: MORPHine 4 MG/ML SYR (22:05)
[2025-04-21 23:08] LABS: Lab Add On Test DONE
[2025-04-21 23:13] LABS: Glucose Negative (Negative)
[2025-04-21 23:30] LABS: Cannabinoids THC Negative (Negative); METHADONE URINE SCREEN Negative (Negative)
[2025-04-22] VITALS (61 sets, daily range): BP systolic 116–135; BP diastolic 67–93; PULSE 61–90; O2SAT 95–97
--- NOTE | 2025-04-22 01:20 | W.EDPROG ---
Date of service: 04/22/25 Time of Service: 01:21 Medical Decision Making This patient was signed out to me. Please see previous notes for H&P and initial eval. IN brief, 19yo M with UC presenting with rectal bleeding. Tentatively accepted to [facility] however hospitalist requested GI consult from the ED after discussion with surgery who is uncomfortable with patient here and feels he would be better served at a facility with GI and capability for infusion. Hospitalist orders placed in consult on patient who remains in the ED at this time. [facility] consulted initially at 1930, unable to make contact yet as of 0130 (at 0030 reportedly in emergent procedure and will call when able). Reached out to [facility] for consult; as consult/transfer not emergent was advised by their transfer center to call back in the morning. Ultimately able to speak with Dr. Kemp from GI; agree pt would benefit from transfer. Advised daily ESR/CRP, clear liquid diet transitioning to NPO when able to transfer/bed available, DVT ppx, continue PPI, start solucortef 100mg q8H. Discussed with Dr. Espino from [facility] colorectal surgery; pt accepted in transfer, ED to ED. Regrettably no local ambulance services available overnight tonight for transfers and [facility] ground not available; will hold in the ED until am, anticipate crew availability at that time. Oncoming physician will be made aware of patient; a follow-on note may only be written if there is a change in patient status or condition. 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 Pt has support through family. Discharge Plan Disposition Patient Disposition: Transfer-Acute Inpatient Care Specific Acute Inpt Facility: [facility] Condition: Stable Discharge Details Clinical Impression: Ulcerative colitis with rectal bleeding Primary Care Provider: SALVADOR VAUGHAN ED Provider: Aubrie Ramirez Home Meds and New Rx's Prescriptions: No Action prednisone 10 mg tablet 10 mg PO DAILY Patient Comments: TAKE ONE TABLET BY MOUTH EVERY DAY FOR 14 DAYS
--- NOTE | 2025-04-22 01:57 | MCONE_ITS ---
Date of service: 04/21/25 Time of Service: 22:00 Assessment and Plan Assessment and plan (1) Rectal hemorrhage due to Crohn's disease: Status: Acute Assessment and plan: Bloody stools without anemia at this time History of infliximab treatment, lost to followup Discussed with general surgeon (no GI at this site) - Concern for developing abscess or perforation with no intervention available at this facility - Concern that supportive care in the hospital will not result in relief for him to get to Friday appointment Requested ED pursue transfer to center with gastroenterology Meanwhile recommend continuing pain relief, agree with solumedrol Started pip-tazo Morning labs ordered (2) 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: Status: Acute Assessment and plan: He does not appear to be on any medication at this time, reportedly ran out of meds Previously on risperdone, sertraline, lisdexamfetamine Seen in this ED March 08 for homicidal ideation, after reportedly seeing a psychotherapist for the first time, where he talked about wanting to off people (3) Tobacco dependence: Status: Acute Assessment and plan: Currently using a patch on advice of GI ahead of immunotherapy for Crohn History of Present Illness History of Present Illness Chief Complaint: diarrhea Narrative: Eddie Rodriguez is a 19 year old man presenting April 21 with a week of worsening loose, bloody, mucousy stools with nausea, dry heaves and reduced appetite. Patient has known Crohn disease but had not participated in treatment for 2 years, until a few days ago, when he started care with GI at [facility]. He has an appointment to start risakizumab there on Friday. Patient reports 5-6 stools per day, they are very large and loose, with dark blood and mucous. Parents said he has never had symptoms this bad before and this is why they were able to get him to follow up with GI. He was started on prednisone earlier this week. He had colonoscopy and biopsy on March 23 at [facility]. Patient has diagnoses of schizophrenia and bipolar disorder with numerous ED visits and hospitalizations for mental health. He denies chest pain, shortness of breath. He denies audio/visual hallucinations. PMH: Crohn diagnosed 2018, anemia, ADHD no longer on vyvanse, nicotine dependence, THC use, bipolar disorder with belen, schizophrenia In the ED, her was tachycardic HR 108; vitals were otherwise unremarkable. CT abdomen/pelvis showed significant circumferential rectal/sigmoid thickening with moderate descending left colon thickening, no apparent SBO. CBC significant for neutrophilic leukocytosis WBC 12.93. Elevated VBG lactate 2.5 improving to 0.9. C diff negative. Metabolic panel with elevated glucose 174, low iron 17, low transferrin sat 6, elevated CRP `11.05, low vitamin D 19. UDS positive for opiates. [facility] contacted for advice from GI service, with callback pending. 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 (Acute) Rectal hemorrhage due to Crohn's disease (Acute) Crohn disease (Chronic) Social History Smoking/Tobacco Use Status: Former Tobacco Use Quit Date: 01/30/25 Smoking risk assessment performed?: Yes Alcohol Intake: former Substance use type: former substance user Housing: house Do you feel safe at home: Yes Do you feel safe in your relationship?: Yes Exam Narrative Exam Narrative: General: This is a thin, pale, anxious man HEENT: Normocephalic, atraumatic CV: Mild tachycardia, no murmur Resp: CTAB Abd: left sided tenderness to any palpation, nondistended MSK: voluntary motion x4 Neuro: awake, alert, no focal deficits Results Last Vital Signs Temp 36.8 C 04/21/25 17:19 Pulse 86 04/22/25 01:10 Resp 18 04/21/25 17:19 BP 128/83 04/22/25 01:01 Pulse Ox 95 04/22/25 01:10 Labs 04/21/25 16:15 04/21/25 16:15 Labs: Laboratory Results - last 24 hr 04/21/25 04/21/25 04/21/25 16:15 16:46 18:24 WBC 12.93 H RBC 5.12 Hgb 13.6 Hct 40.5 MCV 79 L MCH 26.6 L MCHC 33.6 RDW 12.9 Plt Count 463 H MPV 8.1 Immature Gran % 0.6 Neutrophils % 83.9 Lymphocytes % 9.4 Monocytes % 5.6 Eosinophils % 0.1 Basophils % 0.4 Nucleated RBC % 0.0 Absolute Neutrophils 10.85 H Absolute Lymphocytes 1.22 Absolute Monocytes 0.72 Absolute Eosinophils 0.01 Absolute Basophils 0.05 ESR 52 H PT 11.5 H INR 1.2 H VBG Lactate 2.5 H* Sodium 140 Potassium 3.6 Chloride 102 Carbon Dioxide 27.4 Anion Gap 10.6 BUN 9 Creatinine 1.0 Est GFR (CKD-EPI 2020) 109.81 Glucose 174 H Calcium 9.4 Phosphorus 4.0 Magnesium 2.0 Iron 17 L TIBC 272 Transferrin % Sat 6 L Total Bilirubin 0.3 AST 13 L ALT 30 Alkaline Phosphatase 88 C-Reactive Protein 11.05 H Total Protein 8.2 Albumin 2.9 L Lipase 52 Vitamin B12 1501 H 25-OH Vitamin D Total 19 L Urine Color Urine Clarity Urine pH Ur Specific [place] Urine Protein Urine Ketones Urine Blood Urine Nitrite Urine Bilirubin Urine Urobilinogen Ur Leukocyte Esterase Urine Glucose Stl C.difficile Tox PCR Negative Urine Opiates Screen Urine Methadone Screen Ur Barbiturates Screen Ur Tricyclics Screen Ur Amphetamines Screen U Benzodiazepines Scrn Urine Cocaine Screen Ur THC Screen Add-On Test Request DONE 04/21/25 04/21/25 04/21/25 21:20 23:04 23:08 WBC RBC Hgb Hct MCV MCH MCHC RDW Plt Count MPV Immature Gran % Neutrophils % Lymphocytes % Monocytes % Eosinophils % Basophils % Nucleated RBC % Absolute Neutrophils Absolute Lymphocytes Absolute Monocytes Absolute Eosinophils Absolute Basophils ESR PT INR VBG Lactate 0.9 Sodium Potassium Chloride Carbon Dioxide Anion Gap BUN Creatinine Est GFR (CKD-EPI 2020) Glucose Calcium Phosphorus Magnesium Iron TIBC Transferrin % Sat Total Bilirubin AST ALT Alkaline Phosphatase C-Reactive Protein Total Protein Albumin Lipase Vitamin B12 25-OH Vitamin D Total Urine Color Yellow Urine Clarity Clear Urine pH 6.5 Ur Specific [place] <= 1.005 Urine Protein Negative Urine Ketones Negative Urine Blood Negative Urine Nitrite Negative Urine Bilirubin Negative Urine Urobilinogen 0.2 Ur Leukocyte Esterase Negative Urine Glucose Negative Stl C.difficile Tox PCR Urine Opiates Screen Positive A Urine Methadone Screen Negative Ur Barbiturates Screen Negative Ur Tricyclics Screen Negative Ur Amphetamines Screen Negative U Benzodiazepines Scrn Negative Urine Cocaine Screen Negative Ur THC Screen Negative Add-On Test Request DONE
[2025-04-22] MEDS: PIPERACILLIN/TAZO 3.375 GM in Normal Saline 50 ML IVPB (02:30)
[2025-04-22] MEDS: Hydrocortisone SOD SUC. 100 MG VIAL IVP (03:41)
[2025-04-22 05:51] LABS: Abs Immature Grans 0.07 10^3/uL (0.0-0.06); HCT 35.2 % (40.0-50.0); HGB 11.7 g/dL (13.5-17.5); Immature Grans % 0.5 %; MCH 25.8 pg (27.0-33.0); MCHC 33.2 % (32.0-36.0); MCV 78 fL (80-95); MPV 7.9 fL (8.0-11.0); Platelet Count 387 10^3/uL (130-400); RBC 4.54 10^6/uL (4.36-5.78); RDW 12.6 % (11.8-14.1); RDW-SD 35.7 fL; WBC 13.71 10^3/uL (4.4-10.8)
[2025-04-22 06:13] LABS: ALT 30 U/L (16-63); AST 12 U/L (15-37); Albumin 2.3 g/dL (3.4-5.0); Alkaline Phosphatase 71 U/L (46-116); Anion Gap 7.3 mmol/L (3-11); BUN 9 mg/dL (7-18); Bilirubin, Total 0.3 mg/dL (0.2-1.0); CO2 29.7 mmol/L (21.0-32.0); Calcium 8.9 mg/dL (8.5-10.1); Chloride 103 mmol/L (98-107); Estimated GFR 134.44 (mL/min/1.73m2); Glucose 147 mg/dL (74-106); Magnesium 1.9 mg/dL (1.8-2.4); Potassium 4.1 mmol/L (3.5-5.1); Sodium 140 mmol/L (136-145); Total Protein 6.8 g/dL (6.4-8.2)
[2025-04-22 20:54] LABS: Campylobacter PCR Negative (Negative); Shiga Toxin PCR Negative (Negative); Shigella/Enteroinvasive Ecoli Negative (Negative)
== END 2025-04-22 07:13 | disposition short-term general hospital (02) ==
PROVIDERS: Family Medicine; Registered Nurse Emergency; Emergency Provider Student in an Organized Health Care Education/Training Program; PCP Nurse Practitioner Family
DX: K50.911 Crohn's disease, unspecified, with rectal bleeding (principal); F20.9 Schizophrenia, unspecified; F17.200 Nicotine dependence, unspecified, uncomplicated; Z59.811 Housing instability, housed, with risk of homelessness; Z59.89 Other problems related to housing and economic circumstances; Z60.8 Other problems related to social environment
CPT/HCPCS: 00123; 36415; 80053; 80307; 82306; 83690; 85652; 86850; 86900; 86901; 87015; 87269; 87272; 87505; 96361; 96365; 96375; 99284; 99285; 74177; 81003; 82272; 82607; 83540; 83550; 83605; 83735; 84100; 85025; 85610; 86140; J1720; J1885; J2270; J2405; J2470; J2543; J2919; J3490; Q9967

== ENCOUNTER 2025-07-26 14:20 | Outpatient (REF) | payer MEDICAID, SELFPAY ==
[2025-07-26 16:14] LABS: ESR 5 mm/hr (0-15)
[2025-07-26 16:17] LABS: Abs Immature Grans 0.01 10^3/uL (0.0-0.06); HCT 38.5 % (40.0-50.0); HGB 12.9 g/dL (13.5-17.5); Immature Grans % 0.2 %; MCH 27.6 pg (27.0-33.0); MCHC 33.5 % (32.0-36.0); MCV 82 fL (80-95); MPV 9.4 fL (8.0-11.0); Platelet Count 328 10^3/uL (130-400); RBC 4.68 10^6/uL (4.36-5.78); RDW 14.4 % (11.8-14.1); RDW-SD 42.9 fL; WBC 4.34 10^3/uL (4.4-10.8)
[2025-07-26 16:57] LABS: ALT 14 U/L (10-49); AST 18 U/L (<34); Albumin 4.6 g/dL (3.2-5.0); Alkaline Phosphatase 46 U/L (46-116); Anion Gap 7.5 mmol/L (3-11); BUN 10 mg/dL (9-23); Bilirubin, Direct 0.2 mg/dL (<=0.3); Bilirubin, Total 0.60 mg/dL (0.2-1.2); CO2 26.5 mmol/L (20.0-31.0); Calcium 9.3 mg/dL (8.3-10.6); Chloride 105 mmol/L (98-107); Cholesterol 175 mg/dL (<200); Glucose 91 mg/dL (74-106); HDL Cholesterol 50 mg/dL (>40); Potassium 4.2 mmol/L (3.5-5.1); Sodium 139 mmol/L (136-145); Total Protein 7.5 g/dL (5.7-8.2)
[2025-07-26 22:42] LABS: CRP, High Sensitivity 1.24 mg/L (See Note)
== END 2025-07-26 14:21 | disposition home or self-care (01) ==
LOC: NCHCN 14:20
PROVIDERS: PCP Nurse Practitioner Family; Visit Provider Nurse Practitioner Family
DX: K50.90 Crohn's disease, unspecified, without complications (principal)
CPT/HCPCS: 80053; 80061; 80076; 85652; 86141; 85025